=== PATIENT | male | born 1955 | race Caucasian/White ===

== ENCOUNTER 2017-05-04 09:58 | Day surgery (SDC) | payer OTHER ==
[2017-05-03 12:42] VITALS: BMI 38.9
[2017-05-04 12:21] LABS: #Eosinphils 0.3 thou/uL (0.0-0.7); #Lymphocytes 1.9 thou/uL (1.20-3.40); #Monocytes 0.7 thou/uL (0.11-0.59); %Basophils 0.5 % (0.0-1.0); %Eosinophils 2.8 % (0.0-10.0); %Lymphocytes 21.4 % (21.0-51.0); %Monocytes 7.8 % (0.0-10.0); Hematocrit 36.3 % (42.0-52.0); Mean Platelet Volume 7.1 fL (7.4-10.4); Red Blood Cell (RBC) Count 3.91 mill/uL (4.70-6.10)
[2017-05-04 12:27] LABS: PTT 37.2 SEC (22.9-36.1); Prothrombin Time 16.2 SEC (12.0-14.7)
[2017-05-04 12:50] LABS: ALT (SGPT) 21 U/L (8-55); AST (SGOT) 17 U/L (5-34); Alkaline Phosphatase 72 U/L (40-150); Anion Gap 13 mmol/L (10-20); BUN (Urea Nitrogen) 28 mg/dL (8.4-25.7); Bilirubin, Total 0.5 mg/dL (0.2-1.2); Calc. Creatinine Clearance 115 mL/min (70-130); Calcium 9.8 mg/dL (7.8-10.44); Carbon Dioxide 30 mmol/L (22-29); Chloride 99 mmol/L (98-107); Estimated GFR-MDRD 51; Globulin 3.8 g/dL (2.4-3.5); Protein, Total 7.9 g/dL (6.0-8.3)
--- NOTE | 2017-05-04 14:39 | OP ---
DATE OF PROCEDURE: 05/04/2017 PROCEDURE: Cardioversion. Mr. Abad is a 61-year-old man with prior history of persistent atrial fibrillation, atypical flutter with defibrillation in 01/2017. He is on chronic Multaq and Eliquis. He is here for cardioversion. PROCEDURE: The patient received propofol per Anesthesia specialist. After adequate level of sedation achieved, a synchronized 100 joule shock failed to convert him back to sinus rhythm and followup 200 joules synchronized shock promptly converted back to sinus rhythm. A long pause was noted initially, but then normal sinus rhythm returned and eventually heart rate stabilized around 60 beats per minute. CONCLUSION: Successful cardioversion. PLAN: 1. For now, continue Eliquis and Multaq. Consider alternative antiarrhythmic agents versus reablation if recurrent arrhythmias occurs, consider pacing if bradycardia persists. [facility]
== END 2017-05-04 14:30 | disposition home or self-care (01) ==
LOC: CCL 09:58
PROVIDERS: ATTEND Internal Medicine Cardiovascular Disease
DX: I48.1 Persistent atrial fibrillation (principal); I48.4 Atypical atrial flutter; I08.1 Rheumatic disorders of both mitral and tricuspid valves; I11.0 Hypertensive heart disease with heart failure; I50.30 Unspecified diastolic (congestive) heart failure; J98.4 Other disorders of lung; E66.9 Obesity, unspecified; F32.9 Major depressive disorder, single episode, unspecified; Z68.39 Body mass index [BMI] 39.0-39.9, adult; Z79.01 Long term (current) use of anticoagulants; Z79.899 Other long term (current) drug therapy; Z95.818 Presence of other cardiac implants and grafts; Z90.49 Acquired absence of other specified parts of digestive tract; Z98.890 Other specified postprocedural states
CPT/HCPCS: 36415; 80053; 85025; 85610; 85730; 92960; 93005; 93010

== ENCOUNTER 2017-06-25 07:59 | Outpatient (CLI) | payer OTHER ==
--- NOTE | 2017-06-25 10:52 | PRG ---
DATE OF SERVICE: 06/25/2017 WOUND CLINIC NOTE CHIEF COMPLAINT: Wound to the left foot. HISTORY OF PRESENT ILLNESS: A 61-year-old male presents today for initial evaluation of a left foot wound, started on 06/12/2017, when he dropped a hay spear on his foot, has been cleaning with peroxid e and Triple Antibiotic ointment since that time. Wound became red around the edges and went to his doctor yesterday and started on Bactrim DS twice a day. He says he has already noted some improvemen t in the redness. Denies any nausea, vomiting, fevers or chills. No pain associated with the wound. PAST MEDICAL HISTORY: Can be reviewed in the wound care clinic paper charts. PAST SURGICAL HISTORY: Can be reviewed in the wound care clinic paper charts. MEDICATIONS: Can be reviewed in the wound care clinic paper charts. ALLERGIES: Can be reviewed in the wound care clinic paper charts. SOCIAL HISTORY: Can be reviewed in the wound care clinic paper charts. FAMILY HISTORY: Can be reviewed in the wound care clinic paper charts. REVIEW OF SYSTEMS: CONSTITUTIONAL: Denies nausea, vomiting, fevers, or chills. NEUROLOGIC: Denies numbness, tingling, burning sensations. CARDIOVASCULAR: Relates atrial fibrillation, also some venous insufficiency. Has not had his arteri al circulation tested. PHYSICAL EXAMINATION: VITAL SIGNS: Temperature 97.9, pulse 93, respirations 18, blood pressure 108/54. VASCULAR: The posterior tibial pulses are nonpalpable, they are dopplerable. Capillary refill time is immediate to the distal aspect of the toes. NEUROLOGICAL: Light touch and protective threshold intact. DERMATOLOGICAL: Ulcer on the dorsal aspect of the left midfoot measuring 1.8 cm x 2.0 cm x 0.1 cm de pth, 100% eschar. There is a 2 cm periwound ring of erythema. No ascending lymphangitis. No areas of fluctuance. No drainage. Nails are thick and gryphotic with subungual debris and elongated. ASSESSMENT: 1. Traumatic ulceration to the dorsal aspect of the left foot, which was 100% eschar. 2. Cellulitis. PLAN: 1. Daily cleansing of the wound with soap and water, going to keep dry and prevent infection with Aq uacel AG and padded dressing. 2. Continue antibiotics. 3. He has an appointment with Dr. Mccarty, his foreign exchange clerk, and recommend doing his circulation test a t that appointment, he said he will get this done. 4. Follow up with me in 1 week.
== END 2017-06-25 08:00 | disposition home or self-care (01) ==
LOC: WCC 07:59
PROVIDERS: ATTEND Podiatrist Foot & Ankle Surgery
DX: L97.529 Non-pressure chronic ulcer of other part of left foot with unspecified severity (principal); L03.90 Cellulitis, unspecified
CPT/HCPCS: 97602; 99204; G0463

== ENCOUNTER → 2017-07-06 | Day surgery (SDC) | payer OTHER ==
[2017-07-05 15:22] VITALS: BMI 38.9
[~2017-07-06] MED LIST: Lidocaine 1% PF 5 ML VIAL ONE; PROPOFOL 0 ML ONE; PROPOFOL 20 ML ONE; PROPOFOL 200 MG/20 ML VIAL ONE
[2017-07-06 11:54] LABS: #Basophils 0.1 thou/uL (0.0-0.2); #Eosinphils 0.2 thou/uL (0.0-0.7); #Lymphocytes 2.1 thou/uL (1.20-3.40); #Neutrophils 8.3 thou/uL (1.40-6.50); %Basophils 0.5 % (0.0-1.0); %Eosinophils 1.8 % (0.0-10.0); %Lymphocytes 17.7 % (21.0-51.0); %Monocytes 8.8 % (0.0-10.0); %Neutrophils 71.2 % (42.0-75.0); Hemoglobin 13.9 g/dL (14.0-18.0); Mean Corpuscular HGB CONC 32.6 g/dL (32.0-36.0); Mean Corpuscular Hemoglobin 29.9 pg (27.0-31.0); Mean Corpuscular Volume 91.5 fl (80.0-94.0); Mean Platelet Volume 7.1 fL (7.4-10.4); Platelet Count 256 thou/uL (130-400); RBC Distribution Width 13.6 % (11.5-14.5); Red Blood Cell (RBC) Count 4.67 mill/uL (4.70-6.10); White Blood Cell (WBC) Count 11.6 thou/uL (4.8-10.8)
[2017-07-06 12:00] LABS: INR-International Normal Ratio 1.3; PTT 37.6 SEC (22.9-36.1); Prothrombin Time 16.8 SEC (12.0-14.7)
[2017-07-06 12:11] LABS: Anion Gap 18 mmol/L (10-20); BUN (Urea Nitrogen) 49 mg/dL (8.4-25.7); Calc. Creatinine Clearance 67 mL/min (70-130); Calcium 9.9 mg/dL (7.8-10.44); Carbon Dioxide 29 mmol/L (22-29); Chloride 92 mmol/L (98-107); Estimated GFR-MDRD 27; Glucose 123 mg/dL (70-105); Potassium 3.9 mmol/L (3.5-5.1); Sodium 135 mmol/L (136-145)
--- NOTE | 2017-07-06 14:02 | OP ---
DATE OF PROCEDURE: 07/06/2017 CARDIOVERSION REFERRING PHYSICIAN: REASON FOR PROCEDURE: Mr. Abad is a pleasant 61-year-old man with history of persistent atrial fibrillation, he had ablation in 2014, 2015 and 01/2017. He has recurrent atrial fibrillation/flutter, failed Multaq and now is transitioned to flecainide. He continues to feel poorly with elevated heart rates. He is here to attempt repeat cardioversion on flecainide therapy. PROCEDURE: The patient received deep sedation by Anesthesia specialist with propofol. After adequate level of sedation achieved, a synchronized 100 joule shock appeared to convert him to sinus rhythm. A follow up 300 joule shock, though converted back to sinus rhythm. Frequent PACs noted on return rates, but the patient overall tolerated the procedure well, no complication noted. CONCLUSION: Successful cardioversion. Addendum. Artypical atrial flutter recurred after < 1 minute. Plan to stop flecainide. Consider repeat pulmonary venous isolation or left atrial ablation procedure. Continue OAC. MTDD
--- NOTE | 2017-09-06 21:27 | EKG ---
Test Reason : PREOP Blood Pressure : / mmHG Vent. Rate : 102 BPM Atrial Rate : 107 BPM P-R Int : 000 ms QRS Dur : 098 ms QT Int : 370 ms P-R-T Axes : 000 068 071 degrees QTc Int : 482 ms Atrial fibrillation with rapid ventricular response Nonspecific ST abnormality , probably digitalis effect Abnormal ECG When compared with ECG of 04-MAY-2017 12:03, (Unconfirmed) No significant change was found Confirmed by FLAKO ROSAS M.D. ([id number]) on 09/06/2017 9:26:38 PM Referred By: [facility] Confirmed By:FLAKO ROSAS M.D.
--- NOTE | 2017-09-06 21:28 | EKG ---
Test Reason : POST CARDIOVERSION Blood Pressure : / mmHG Vent. Rate : 093 BPM Atrial Rate : 258 BPM P-R Int : 000 ms QRS Dur : 086 ms QT Int : 368 ms P-R-T Axes : 000 064 097 degrees QTc Int : 457 ms Atrial flutter with variable AV conduction. Nonspecific ST and T wave abnormality , probably digitalis effect Abnormal ECG When compared with ECG of 06-JUL-2017 11:53, (Unconfirmed) Nonspecific T wave abnormality now evident in Anterior leads Confirmed by FLAKO ROSAS M.D. ([id number]) on 09/06/2017 9:27:51 PM Referred By: [facility] Confirmed By:FLAKO ROSAS M.D.
== END ==
LOC: CCL 10:58
PROVIDERS: ATTEND Internal Medicine Cardiovascular Disease
DX: I48.1 Persistent atrial fibrillation (principal); I48.4 Atypical atrial flutter; I08.1 Rheumatic disorders of both mitral and tricuspid valves; J98.4 Other disorders of lung; F32.9 Major depressive disorder, single episode, unspecified; I11.9 Hypertensive heart disease without heart failure; E66.01 Morbid (severe) obesity due to excess calories; Z68.39 Body mass index [BMI] 39.0-39.9, adult; Z79.01 Long term (current) use of anticoagulants; Z79.899 Other long term (current) drug therapy; Z95.818 Presence of other cardiac implants and grafts; Z90.49 Acquired absence of other specified parts of digestive tract; Z98.890 Other specified postprocedural states
CPT/HCPCS: 36415; 80048; 85025; 85610; 85730; 92960; 93005; 93010; J2001; J2704

== ENCOUNTER 2017-08-13 05:52 | Observation (INO) | payer OTHER ==
[2017-08-13 07:19] LABS: #Eosinphils 0.1 thou/uL (0.0-0.7); #Lymphocytes 1.9 thou/uL (1.20-3.40); #Monocytes 0.9 thou/uL (0.11-0.59); #Neutrophils 7.3 thou/uL (1.40-6.50); %Basophils 0.3 % (0.0-1.0); %Eosinophils 1.4 % (0.0-10.0); %Lymphocytes 18.6 % (21.0-51.0); %Monocytes 8.3 % (0.0-10.0); %Neutrophils 71.4 % (42.0-75.0); Hemoglobin 13.5 g/dL (14.0-18.0); Mean Corpuscular HGB CONC 33.8 g/dL (32.0-36.0); Mean Corpuscular Volume 85.9 fl (80.0-94.0); Mean Platelet Volume 7.5 fL (7.4-10.4); Platelet Count 180 thou/uL (130-400); RBC Distribution Width 13.7 % (11.5-14.5); Red Blood Cell (RBC) Count 4.63 mill/uL (4.70-6.10); White Blood Cell (WBC) Count 10.2 thou/uL (4.8-10.8)
[2017-08-13 07:26] LABS: INR-International Normal Ratio 1.4; PTT 37.3 SEC (22.9-36.1); Prothrombin Time 17.5 SEC (12.0-14.7)
[2017-08-13 07:40] LABS: Anion Gap 17 mmol/L (10-20); BUN (Urea Nitrogen) 49 mg/dL (8.4-25.7); Calc. Creatinine Clearance 85 mL/min (70-130); Calcium 10.1 mg/dL (7.8-10.44); Carbon Dioxide 35 mmol/L (22-29); Chloride 90 mmol/L (98-107); Estimated GFR-MDRD 37; Glucose 148 mg/dL (70-105); Sodium 139 mmol/L (136-145)
[2017-08-13 07:43] LABS: Potassium 2.6 mmol/L (3.5-5.1)
[2017-08-13] MEDS ORDERED: Potassium Chloride 20 MEQ in Premix Bag 1 BAG IVPB SCH (08:00)
[2017-08-13] MEDS ORDERED: Potassium Chloride 20 MEQ TAB PO SCH ×3 (08:00→20:00)
[2017-08-13] MEDS ORDERED: Potassium Chloride 20 MEQ, Admixture Fee 1 EACH in Sodium Chloride 0.9% 100 ML IVPB SCH (08:45)
--- NOTE | 2017-08-13 09:28 | PDOC.FPRHP ---
- History of Present Illness Chief Complaint: Hypokalemia History of Present Illness: PCP - Breanna Patient seen 08/13/17 at 0854 Mr. Abad is a pleasant 62 year old white male with a past medical history of atrial fibrillation, HTN, and depression was scheduled to have a cardioversion this morning. Admission labs collected in PCU showed a potassium of 2.6. Patient states he feels well overall today. Denies headache, dizziness, chest pain, dyspnea, nausea, and weakness. He has had atrial fibrillation for years but states it has been worsening recently. He has had frequent dizziness and multiple episodes of syncope in recent weeks. He reports several attempts at ablation that have failed. ED Course: Not seen in ED. Seen in PCU as listed above - Allergies/Adverse Reactions Allergies Allergy/AdvReac Type Severity Reaction Status Date / Time No Known Allergies Allergy Verified 08/12/17 14:05 - Home Medications Medication Instructions Recorded Confirmed Type Tamsulosin HCl 1 tab PO HS 12/12/13 08/13/17 History Venlafaxine HCl [Effexor] 75 mg PO DAILY 12/12/13 08/13/17 History Apixaban [Eliquis] 5 mg PO BID 05/04/15 08/13/17 History Diltiazem HCl [Cardizem] 60 mg PO TID 07/05/17 08/13/17 History Furosemide [Lasix] 40 mg PO BID 07/05/17 08/13/17 History Dofetilide [Tikosyn] 0.5 mg PO BID 08/12/17 08/13/17 History Metoprolol Succinate [Toprol XL] 0.5 tab PO DAILY 08/12/17 08/13/17 History Naproxen Sodium [Aleve] 2 tab PO DAILY 08/12/17 08/13/17 History Potassium Chloride 20 meq PO BID 08/12/17 08/13/17 History Metoprolol Tartrate 100 mg PO BID 08/13/17 08/13/17 History - History PMHx: A. fib, HTN, depression PSHx: Cholecystectomy, clemente surgery, multiple cardiac ablation, tonsillectomy FHx: Adopted. FH unknown Social: Rare alcohol use. No history of tobacco or drug use. . 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 denies: chest pain, edema, paroxysmal nocturnal dyspnea, orthopnea Gastrointestinal: denies: nausea, vomiting, diarrhea, constipation, abdominal pain, GI bleeding Genitourinary: denies: incontinence, dysuria, polyuria Skin: denies: rashes, lesions, jaundice, itching Musculoskeletal: denies: pain, tenderness, stiffness, swelling, arthritis/ arthralgias Neurological: reports: syncope. denies: numbness, seizure, weakness Psychological: reports: other (Denies suicidal and homicidal ideation). denies : anxiety, depression - Vital signs BP: 96/56 HR: 84 RR: 16 Tmax: [] Pox: 96% on RA Wt: 145 kg - Physical Exam Constitutional: NAD, awake, alert and oriented, well developed HEENT: normocephalic and atraumatic, PERRLA, EOMI, conjunctiva clear, no scleral icterus, grossly normal vision, TM's clear and intact, grossly normal hearing, normal nasal mucosa, MMM, oropharynx clear, good dention Neck: supple, FROM, trachea midline, no LAD, no thyromegaly, no bruits Chest: no-tender to palpation, no lesions Heart: normal S1/S2, no murmurs/rubs/gallops, pulses present, no edema -Heart: Irregular rhythm Lungs: CTAB, no respiratory distress, good air movement, no rales/rhonchi, no wheezing, no retractions Abdomen: soft, non-tender, bowel sounds present, no masses/distention, no hernias Musculoskeletal: normal structure, normal tone, ROM grossly normal Neurological: no focal deficit, CN II-XII intact, normal sensation, DTRs 2+ Skin: no rash/lesions, good turgor, capillary refill <2 seconds, no jaundice Heme/Lymphatic: no unusual bruising or bleeding, no purpura, no petechia, no LAD Psychiatric: normal mood and affect, good judgment and insight, intact recent and remote memory FMR H&P: Results - Labs Result Diagrams: 08/13/17 07:01 08/13/17 07:01 Lab results: WBC 10.2 thou/uL (4.8-10.8) 08/13/17 07:01 Hgb 13.5 g/dL (14.0-18.0) L 08/13/17 07:01 Hct 39.8 % (42.0-52.0) L 08/13/17 07:01 MCV 85.9 fl (80.0-94.0) 08/13/17 07:01 Plt Count 180 thou/uL (130-400) 08/13/17 07:01 Neutrophils % 71.4 % (42.0-75.0) 08/13/17 07:01 Sodium 139 mmol/L (136-145) 08/13/17 07:01 Potassium 2.6 mmol/L (3.5-5.1) L* 08/13/17 07:01 Chloride 90 mmol/L (98-107) L 08/13/17 07:01 Carbon Dioxide 35 mmol/L (22-29) H 08/13/17 07:01 BUN 49 mg/dL (8.4-25.7) H 08/13/17 07:01 Creatinine 1.89 mg/dL (0.6-1.3) H 08/13/17 07:01 Glucose 148 mg/dL (70-105) H 08/13/17 07:01 Calcium 10.1 mg/dL (7.8-10.44) 08/13/17 07:01 - EKG Interpretation EKG: Irregular. Atrial fibrillation. No ischemic changes. No P-waves present FMR H&P: A/P - Problem List (1) Hypokalemia Current Visit: Yes Status: Acute Priority: High Code(s): E87.6 - HYPOKALEMIA Assessment and Plan: Place in telemetry observation - Given 60 mEq po and 20 mEq iv in PCU - Check magnesium - In light of hypertension and hypokalemia, will rule out hyperaldersteronism - (2) Atrial fibrillation Current Visit: Yes Status: Chronic Code(s): I48.91 - UNSPECIFIED ATRIAL FIBRILLATION Qualifiers: Atrial fibrillation type: chronic Qualified Code(s): I48.2 - Chronic atrial fibrillation Assessment and Plan: Continue home meds - Continue anticoagullation - Dr. Monzon consulted - Monitor on telemetry - Echo taken. Read pending (3) HTN (hypertension), benign Current Visit: No Status: Chronic Code(s): I10 - ESSENTIAL (PRIMARY) HYPERTENSION Assessment and Plan: BP a little low at time of exam. Will monitor and restart home meds if improved (4) BPH (benign prostatic hyperplasia) Current Visit: No Status: Chronic Code(s): N40.0 - BENIGN PROSTATIC HYPERPLASIA WITHOUT LOWER URINRY TRACT SYMP Qualifiers: Lower urinary tract symptom presence: presence of symptoms unspecified Assessment and Plan: Home meds (5) Diastolic CHF Current Visit: Yes Status: Chronic Code(s): I50.30 - UNSPECIFIED DIASTOLIC ( CONGESTIVE) HEART FAILURE Qualifiers: Heart failure chronicity: chronic Qualified Code(s): I50.32 - Chronic diastolic (congestive) heart failure Assessment and Plan: Previous echo from 2016 read to be suspicious for diastolic CHF and several of his meds are consistent with CHF. Will monitor input and output. Echo requested by Dr. Monzon (6) Depression Current Visit: No Status: Chronic Code(s): F32.9 - MAJOR DEPRESSIVE DISORDER , SINGLE EPISODE, UNSPECIFIED Qualifiers: Depression Type: major depressive disorder Major depression recurrence: recurrent Active/Remission status: remission status unspecified Qualified Code(s): F33.9 - Major depressive disorder, recurrent, unspecified Assessment and Plan: Home meds - Plan Code Status - Full Activity - Ambulate with assist, fall precautions DVT prophylaxis - home anticoagulant Diet - NPO as Dr. Monzon may cardiovert later today Disposition/LOS: Anticipate 1 to 2 day stay with discharge home FMR H&P: Upper Level - Plan Date/Time: 08/13/17 [id number] I, [], have evaluated this patient and agree with findings/plan as outlined by hospital internship resident. Pertinent changes/additions are listed here. Attending Addendum - Attending Addendum Date/Time: 08/13/17 1329 I personally evaluated the patient and discussed the management with the Resident Physician. I agree with the History, Examination, Assessment and Plan documented above with any addition or exceptions noted below.
[2017-08-13 13:04] VITALS: BMI 38.2
[2017-08-13] MEDS: Dextrose 5 %-0.45 % NaCl 1,000 ML IV SCH ×2 (13:34→23:45)
[2017-08-13 14:09] LABS: Anion Gap 16 mmol/L (10-20); BUN (Urea Nitrogen) 49 mg/dL (8.4-25.7); Calc. Creatinine Clearance 89 mL/min (70-130); Calcium 9.6 mg/dL (7.8-10.44); Carbon Dioxide 32 mmol/L (22-29); Chloride 93 mmol/L (98-107); Estimated GFR-MDRD 39; Glucose 109 mg/dL (70-105); Potassium 3.2 mmol/L (3.5-5.1); Sodium 138 mmol/L (136-145)
--- NOTE | 2017-08-13 14:13 | PRG ---
DATE OF SERVICE: 08/13/2017 REFERRING PHYSICIAN: Dr. Mccarty I am seeing Mr. Abad at our [facility] PCU as a followup. SUBJECTIVE: Mr. Abad has been experiencing increasing dizzy spells and weakness. Hence, we samaria t him into the office. Atrial flutter with rapid rates were noted and despite the continued Tikosyn initiated after his last ablation in 07/2017. The decision was made to bring him in for repeat cardi oversion. This morning, currently, he is doing fairly, still feels somewhat dizzy, did not pass out completely. No chest pain, no fever, chills or cough, no stroke-like symptoms. Respiratory system o therwise unremarkable. Laboratory revealed lower potassium at 2.6 on this morning's labs. OBJECTIVE DATA: VITAL SIGNS: Blood pressure is 90/52, heart rate 93, respirations 17, temperature 97.3 degrees Fahre nheit. GENERAL: He is alert and oriented man in no apparent distress with elevated BMI. NECK: Supple. Jugular veins not distended. CHEST: Coarse without crackles. CARDIOVASCULAR: Heart sounds, irregular. S1 and S2 is variable. No murmur or gallop. ABDOMEN: Benign. Bowel sounds positive. EXTREMITIES: Lower extremities without edema, clubbing or cyanosis. Pulses are adequate. NEUROLOGIC: Patient nonfocal. MUSCULOSKELETAL: No joint swelling or deformities. SKIN: Without rash. DATABASE: EKG was reviewed reveals atrial flutter with occasional PVCs, prolonged QT considering the low potassium. Subsequent telemetry strips reveal continued atrial tachycardia with occasional PVCs . No ventricular tachycardia was noted. LABORATORY DATA: Sodium 139, potassium 2.6, BUN 49, creatinine 1.89. The white count is 10, hemoglo bin 10.5, platelet count is 180. INR is 1.4. PAST HISTORY/SOCIAL HISTORY: Reviewed. ASSESSMENT AND PLAN: Mr. Abad is a 62-year-old male with history of atrial fibrillation, diastolic heart failure, obesity, hypertension, who was admitted, has recurrent atrial arrhythmias despite con tinued Tikosyn. He also has some mild to moderate renal insufficiency and he is on high dose diureti cs. This morning he is noted to have marked low potassium. At this point, we decided to replace pot assium prior to a planned cardioversion. I also requested a Nephrology consult. Family Practice Res idency team is going to admit him. I discussed the case with Dr. Mccarty as well. The plan is to attempt cardioversion. Monitor potassium levels and hopefully optimize his potassium replacement and renal function. The Tikosyn levels might need adjustments as well.
[2017-08-13] MEDS ORDERED: Diprivan 0 ML ONE (15:40)
[2017-08-13] MEDS ORDERED: Diprivan 20 ML ONE (15:48)
[2017-08-13] MEDS ORDERED: Digoxin 0.25 MG TAB PO SCH (17:00)
[2017-08-13] MEDS: Furosemide 40 MG TAB PO SCH (20:03)
[2017-08-13] MEDS: Tamsulosin HCl 0.4 MG CAP PO SCH (20:03)
[2017-08-13] MEDS: Apixaban 5 MG TAB PO SCH (20:03)
[2017-08-13] MEDS ORDERED: Tamsulosin HCl 0.4 MG CAP PO SCH (21:00)
[2017-08-13] MEDS ORDERED: DOFETILIDE PO SCH (21:00)
[2017-08-13] MEDS ORDERED: Dofetilide 0.125 MG CAP PO SCH (21:00)
--- NOTE | 2017-08-14 00:16 | OP ---
DATE OF SERVICE: 08/13/2017 CARDIOVERSION REPORT REFERRING PHYSICIAN: Svetlana Mccarty M.D. REASON FOR PROCEDURE: Mr. Abad is a 62-year-old male with prior history of recurrent atrial arrhyt hmias. He underwent a recent redo left atrial ablation procedure and was placed on Tikosyn in [place] . Now, he returned with atrial tachycardia, atrial fibrillation, and due to dizzy spells, we exploit ed his cardioversion. The patient is still taking 500 mcg of Tikosyn. Also, this morning labs revie wed potassium of 2.6 and aggressive replacement of potassium was performed, the followup potassium le homar was 3.2. The patient has been taking his anticoagulation without interruption. PROCEDURE: The patient received propofol by Anesthesia specialist. After adequate level of sedation achieved, a synchronized a 20 joule shock promptly converted patient back to sinus rhythm. After sh ort pause, the atrial tachycardia recurred with 1:1 AV conduction at a rate about 120 beats per minut e. Following that repeated cardioversion with 100 joules again achieved a cardioversion, but early recur rence of atrial tachycardia has been seen. CONCLUSION: Successful cardioversion, but with early recurrence of atrial tachycardia noted. PLAN: At this point, in the presence of QT prolongation and borderline renal and potassium levels, w e will stop Tikosyn. After optimization of his potassium levels and washout of his Tikosyn, we could reconsider flecainide and another cardioversion versus continued rate control is also reasonable up until a couple months out of the procedure. At this point, a repeated cardioversion will likely to b e performed. If at that point atrial tachycardia still persist, repeat ablation is another possibili ty. For now, he will remain in the hospital for rate control and optimization of his potassium levels and diastolic heart failure issues. Discussed with Dr. Mccarty, his usual dance therapist, as well as Dr. Fredrick rosa, who covers for her as well.
[2017-08-14 05:03] LABS: #Eosinphils 0.3 thou/uL (0.0-0.7); #Lymphocytes 2.4 thou/uL (1.20-3.40); #Monocytes 1.1 thou/uL (0.11-0.59); #Neutrophils 6.5 thou/uL (1.40-6.50); %Basophils 0.3 % (0.0-1.0); %Eosinophils 2.6 % (0.0-10.0); %Lymphocytes 23.3 % (21.0-51.0); %Monocytes 10.8 % (0.0-10.0); Hemoglobin 12.8 g/dL (14.0-18.0); Mean Corpuscular HGB CONC 32.3 g/dL (32.0-36.0); Mean Corpuscular Hemoglobin 28.3 pg (27.0-31.0); Mean Corpuscular Volume 87.5 fl (80.0-94.0); Mean Platelet Volume 7.9 fL (7.4-10.4); Platelet Count 167 thou/uL (130-400); RBC Distribution Width 13.6 % (11.5-14.5); Red Blood Cell (RBC) Count 4.54 mill/uL (4.70-6.10); White Blood Cell (WBC) Count 10.3 thou/uL (4.8-10.8)
[2017-08-14 05:20] LABS: Anion Gap 16 mmol/L (10-20); BUN (Urea Nitrogen) 41 mg/dL (8.4-25.7); Calc. Creatinine Clearance 100 mL/min (70-130); Calcium 9.5 mg/dL (7.8-10.44); Carbon Dioxide 32 mmol/L (22-29); Chloride 92 mmol/L (98-107); Estimated GFR-MDRD 44; Glucose 147 mg/dL (70-105); Potassium 3.2 mmol/L (3.5-5.1); Sodium 137 mmol/L (136-145)
--- NOTE | 2017-08-14 06:20 | PDOC.FM ---
- Subjective Subjective: Patient states he had a good night. He spontaneously converted to NSR around midnight previously. Patient states he no longer has sob and denies lightheadedness. He states that he is waiting to see Dr. Snowden and a light oil operator today. He denies n/v/d, fever, or chills. No other complaints. - Objective Vital Signs & Weight: Vital Signs (12 hours) Temp Pulse Resp BP Pulse Ox 08/14/17 04:43 97.6 F 70 14 123/57 L 97 08/14/17 00:03 98 F 130 H 18 127/79 95 08/13/17 20:08 98.5 F 135 H 18 08/13/17 19:27 98.5 F 135 H 18 133/77 97 Weight Weight 145.24 kg I&O: 08/12/17 08/13/17 08/14/17 06:59 06:59 06:59 Intake Total 2110 Output Total 1050 Balance 1060 Result Diagrams: 08/14/17 04:43 08/14/17 04:43 <Sanjay Rao - Last Filed: 08/14/17 07:49> - Objective Vital Signs & Weight: Vital Signs (12 hours) Temp Pulse Resp BP Pulse Ox 08/14/17 08:59 64 08/14/17 08:00 97.6 F 70 14 08/14/17 07:54 97.8 F 67 20 141/58 H 94 L 08/14/17 04:43 97.6 F 70 14 123/57 L 97 08/14/17 00:03 98 F 130 H 18 127/79 95 Weight Weight 145.24 kg I&O: 08/13/17 08/14/17 08/15/17 06:59 06:59 07:59 Intake Total 2110 Output Total 1050 Balance 1060 Result Diagrams: 08/14/17 04:43 08/14/17 04:43 <Ruperto Casarez - Last Filed: 08/14/17 11:17> Phys Exam - Physical Examination Constitutional: NAD HEENT: moist MMs Neck: no nodes Respiratory: no wheezing Cardiovascular: RRR, no significant murmur Gastrointestinal: soft, non-tender, no distention, positive bowel sounds Musculoskeletal: no edema, pulses present Neurological: non-focal, moves all 4 limbs Lymphatic: no nodes Psychiatric: normal affect, A&O x 3 Skin: no rash <Sanjay Rao - Last Filed: 08/14/17 07:49> Dx/Plan (1) Hypokalemia Code(s): E87.6 - HYPOKALEMIA Status: Acute Plan: Place in telemetry observation - Potassium this am 3.2, will continue to replenish - Mg on 08/13 was 2.5 - In light of hypertension and hypokalemia, will rule out hyperaldersteronism (2) Atrial fibrillation Code(s): I48.91 - UNSPECIFIED ATRIAL FIBRILLATION Status: Chronic QualifierTitle: Atrial fibrillation type: chronic Qualified Code(s): I48.2 - Chronic atrial fibrillation Plan: Continue home meds - Continue anticoagullation - Dr. Monzon consulted, cardioversion failed - Monitor on telemetry - Rate controlled into 70s overnight (3) Diastolic CHF Code(s): I50.30 - UNSPECIFIED DIASTOLIC (CONGESTIVE) HEART FAILURE Status: Chronic QualifierTitle: Heart failure chronicity: chronic Qualified Code(s): I50.32 - Chronic diastolic (congestive) heart failure Plan: -ECHO results could not determine diastolic CHF because of A-fib - EF 50-55% -Will make treatment changes as needed -Currently asymptomatic (4) BPH (benign prostatic hyperplasia) Code(s): N40.0 - BENIGN PROSTATIC HYPERPLASIA WITHOUT LOWER URINRY TRACT SYMP Status: Chronic QualifierTitle: Lower urinary tract symptom presence: presence of symptoms unspecified Plan: -Continue home meds (5) Depression Code(s): F32.9 - MAJOR DEPRESSIVE DISORDER, SINGLE EPISODE, UNSPECIFIED Status : Chronic QualifierTitle: Depression Type: major depressive disorder Major depression recurrence: recurrent Active/Remission status: remission status unspecified Qualified Code(s): F33.9 - Major depressive disorder, recurrent, unspecified Plan: -Continue home meds (6) HTN (hypertension), benign Code(s): I10 - ESSENTIAL (PRIMARY) HYPERTENSION Status: Chronic Plan: -BP 120s/70s -Will resume home meds, will monitor for low BP -Will make treatment changes as needed. (7) CKD (chronic kidney disease) stage 3, GFR 30-59 ml/min Code(s): N18.3 - CHRONIC KIDNEY DISEASE, STAGE 3 (MODERATE) Status: Acute Plan: -Pending Nephrology recs, Appreciate Dr. Calixto's recs - Monitor with BMP - Plan Plan: Will await Cards & Nephro recs, and electrolyte replenishment before discharge planning. <Sanjay Rao - Last Filed: 08/14/17 07:49> (1) Hypokalemia Code(s): E87.6 - HYPOKALEMIA Status: Acute (2) Atrial fibrillation Code(s): I48.91 - UNSPECIFIED ATRIAL FIBRILLATION Status: Chronic Qualifiers: Atrial fibrillation type: chronic Qualified Code(s): I48.2 - Chronic atrial fibrillation (3) HTN (hypertension), benign Code(s): I10 - ESSENTIAL (PRIMARY) HYPERTENSION Status: Chronic (4) BPH (benign prostatic hyperplasia) Code(s): N40.0 - BENIGN PROSTATIC HYPERPLASIA WITHOUT LOWER URINRY TRACT SYMP Status: Chronic Qualifiers: Lower urinary tract symptom presence: presence of symptoms unspecified (5) Diastolic CHF Code(s): I50.30 - UNSPECIFIED DIASTOLIC (CONGESTIVE) HEART FAILURE Status: Chronic Qualifiers: Heart failure chronicity: chronic Qualified Code(s): I50.32 - Chronic diastolic (congestive) heart failure (6) Depression Code(s): F32.9 - MAJOR DEPRESSIVE DISORDER, SINGLE EPISODE, UNSPECIFIED Status : Chronic Qualifiers: Depression Type: major depressive disorder Major depression recurrence: recurrent Active/Remission status: remission status unspecified Qualified Code(s): F33.9 - Major depressive disorder, recurrent, unspecified <Ruperto Casarez - Last Filed: 08/14/17 11:17> Attending Addendum - Attending Addendum Date/Time: 08/14/17 1115 I personally evaluated the patient and discussed the management with Dr. Rao. I agree with the History, Examination, Assessment and Plan documented above with any addition or exceptions noted below. Appreciate Cards and Nephro input. He may benefit from daily Magnesium supplementation. He may benefit from spironolactone to prevent hypokalemia. <Ruperto Casarez - Last Filed: 08/14/17 11:17>
[2017-08-14] MEDS ORDERED: Potassium Chloride 20 MEQ TAB PO SCH (06:30)
[2017-08-14] MEDS: Digoxin 0.125 MG TAB PO SCH (08:59)
[2017-08-14] MEDS: Apixaban 5 MG TAB PO SCH ×2 (09:00→20:12)
[2017-08-14] MEDS: Furosemide 40 MG TAB PO SCH (09:01)
--- NOTE | 2017-08-14 10:32 | ULT ---
BILATERAL RENAL ULTRASOUND: Date: 08/14/17 PROVIDED CLINICAL HISTORY: Renal insufficiency. FINDINGS: Right kidney measures about 11.5 x 7.0 x 7.0 cm and demonstrates no evidence for hydronephrosis or ma ss. Left kidney measures about 14.0 x 5.8 x 4.4 cm and demonstrates no evidence for hydronephrosis or mas s. Multiple simple cysts are seen. The urinary bladder appears sonographically unremarkable. IMPRESSION: No evidence for hydronephrosis. POS: VINNIE
--- NOTE | 2017-08-14 11:25 | CON ---
DATE OF CONSULTATION: 08/14/2017 HISTORY OF PRESENT ILLNESS: Mr. Abad is a 62-year-old white male, who was admitted due to rapid AF ib/flutter and now referred for his hypokalemia. He was also noted to have some mild renal impairmen t. I did review his lab work in the last several months and renal dysfunction was noted early last y ear. Prior to that the renal function was normal. I also noted that he was started on diuretics las t year and he has been currently placed on maintenance potassium replacement. We are here to further evaluate his hypokalemia and renal dysfunction. Renal ultrasound has been ord ered, which was said to be normal. REVIEW OF SYSTEMS: No chest pain, no shortness of breath, occasional palpitation. No nausea, no vom iting, no diarrhea, no constipation, no hematochezia, no melena, no hematemesis, no abdominal pain, o ccasional joint pains, no headache, no syncopal episode, no productive cough, no fever or chills, no gross hematuria. MEDICATIONS: Currently on Eliquis 5 mg p.o. b.i.d., currently on D5 half normal saline 100 mL per ho ur, furosemide 40 mg p.o. b.i.d., Toprol-XL 50 mg daily, Flomax 0.4 mg daily, Effexor 75 mg daily. PAST MEDICAL HISTORY: History of chronic atrial fibrillation/atrial flutter and hypertension. Freya barry note, hypertension has been diagnosed 30 years ago. PAST SURGICAL HISTORY: Status post cardioversion multiple times, status post cardiac ablation x4, st atus post cardiac catheterization. SOCIAL HISTORY: The patient lives in [place], , 4 children. Alcohol: One half bottle of whiske y per weekend. 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 Education: H igh school. No IV drug abuse. No blood transfusion. Active lifestyle. ALLERGIES: None. TRAUMA: None. IMMUNIZATIONS: Up to date. HOSPITALIZATIONS: Please see past medical history. FAMILY HISTORY: The patient is adopted. PHYSICAL EXAMINATION: VITAL SIGNS: Blood pressure is noted at 141/58, heart rate 67, respiratory rate 20, temperature 97.8 , pulse ox 94%. GENERAL: Noted to be awake, alert, and comfortable, not in overt distress. SKIN: Adequate turgor. HEENT: He has pinkish conjunctivae, anicteric sclerae. NECK: No neck mass, no carotid bruits, no JVD. CHEST: No deformities. LUNGS: Clear breath sounds. HEART: Normal sinus rhythm. No murmur, no gallops, no rubs. ABDOMEN: Globular, soft, nontender, no masses. EXTREMITIES: No edema, no deformities. NEUROLOGIC: Awake, oriented to 3 spheres. No asterixis, no tremors, moving all extremities. LABORATORY DATA: Laboratories of 08/14/2017: Sodium 137, potassium 3.2, chloride 92, carbon dioxide 32, BUN 41, creatinine 1.61, glucose 147, calcium 9.5. White count 10.3 and hemoglobin 12.8. Renal ultrasound was normal. Further review of serum creatinine shows the following: On 08/13/2017, creatinine was 1.89. Further review of the serum creatinine shows that on 05/04/2017, creatinine was 1.42. On 12/29/2016, creatinine was 1.75. On 11/13/2016, creatinine was 1.08. ASSESSMENT AND PLAN: 1. Chronic renal failure -- I suspect this is a hemodynamically mediated renal dysfunction. We will adjust his Lasix downwards. He was given gentle volume repletion. 2. Hypokalemia, most likely diuretic induced. I have decided to add spironolactone to consider pota ssium and due to the fact he does have history of leg edema as well as hypertension. 3. Chronic leg edema -- unclear etiology. However, we will adjust furosemide downwards. 4. Hypokalemia. I would probably continue potassium replacement since the patient will still be on diuretics. Please note, spironolactone has been added. Check base met, CBC and urinalysis in the morning.
[2017-08-14] MEDS: Dextrose 5 %-0.45 % NaCl 1,000 ML IV SCH ×2 (11:54→20:11)
[2017-08-14 13:42] LABS: Bilirubin Negative (Negative); Blood, Urine Negative (Negative); Clarity CLEAR (Clear); Glucose, Urine (Dipstick) Negative (Negative); Leukocyte Negative (Negative); Nitrite Negative (Negative); Protein, Urine (Dipstick) Negative (Neg-Trace); Specific Gravity, Urine 1.011 (1.002-1.036); Urobilinogen 0.2 mg/dL (0.2-1.0)
[2017-08-14 13:44] LABS: Bacteria/HPF None Seen HPF (None Seen); Hyaline Casts/LPF 0-3 HYALINE CAST LPF (0-3 Hyaline); RBC/HPF 0-3 HPF (0-3); Squamous Epithelial None Seen HPF (0-3); WBC/HPF None Seen HPF (0-3)
[2017-08-14] MEDS: Tamsulosin HCl 0.4 MG CAP PO SCH (20:13)
[2017-08-15 04:48] LABS: #Eosinphils 0.2 thou/uL (0.0-0.7); #Monocytes 0.8 thou/uL (0.11-0.59); #Neutrophils 5.1 thou/uL (1.40-6.50); %Basophils 0.4 % (0.0-1.0); %Eosinophils 2.5 % (0.0-10.0); %Lymphocytes 24.7 % (21.0-51.0); %Monocytes 10.1 % (0.0-10.0); %Neutrophils 62.3 % (42.0-75.0); Hemoglobin 11.6 g/dL (14.0-18.0); Mean Corpuscular HGB CONC 32.1 g/dL (32.0-36.0); Mean Corpuscular Hemoglobin 28.7 pg (27.0-31.0); Mean Corpuscular Volume 89.4 fl (80.0-94.0); Mean Platelet Volume 7.7 fL (7.4-10.4); Platelet Count 151 thou/uL (130-400); RBC Distribution Width 13.8 % (11.5-14.5); Red Blood Cell (RBC) Count 4.04 mill/uL (4.70-6.10); White Blood Cell (WBC) Count 8.2 thou/uL (4.8-10.8)
[2017-08-15 05:00] LABS: Anion Gap 11 mmol/L (10-20); BUN (Urea Nitrogen) 28 mg/dL (8.4-25.7); Calc. Creatinine Clearance 127 mL/min (70-130); Calcium 9.3 mg/dL (7.8-10.44); Carbon Dioxide 37 mmol/L (22-29); Chloride 91 mmol/L (98-107); Estimated GFR-MDRD 58; Glucose 128 mg/dL (70-105); Sodium 136 mmol/L (136-145)
[2017-08-15 05:03] LABS: Potassium 2.8 mmol/L (3.5-5.1)
[2017-08-15] MEDS ORDERED: Potassium Chloride 20 MEQ/100 ML PREMIX BAG IVPB SCH (05:30)
[2017-08-15] MEDS: Dextrose 5 %-0.45 % NaCl 1,000 ML IV SCH (05:31)
[2017-08-15] MEDS ORDERED: Potassium Chloride 20 MEQ TAB PO SCH ×4 (06:15→19:00)
--- NOTE | 2017-08-15 06:20 | PDOC.FM ---
- Subjective Subjective: Patient had a good night. He states he has been up and walking around with no problems. He also notes his heart hasn't gone out of rhythm. He denies chest pain, sob, n/v/d. He said he was seen yesterday by Nephrology and Dr. Calixto as well as Cardiology and Dr. Snowden. He is agreeable to their treatment plans at this time. He has been having regular BMs and urination. No fevers, chills, cough, or other complaints this morning. - Objective Vital Signs & Weight: Vital Signs (12 hours) Temp Pulse Resp BP Pulse Ox 08/15/17 04:00 98.1 F 57 L 18 127/71 94 L 08/14/17 20:15 98.5 F 60 16 08/14/17 19:26 98.5 F 60 16 120/63 93 L Weight Weight 145.24 kg I&O: 08/13/17 08/14/17 08/15/17 06:59 06:59 07:59 Intake Total 2110 1658 Output Total 1050 2250 Balance 1060 -592 Result Diagrams: 08/15/17 04:10 08/15/17 04:10 <Sanjay Rao - Last Filed: 08/15/17 09:50> - Objective Vital Signs & Weight: Vital Signs (12 hours) Temp Pulse Resp BP Pulse Ox 08/15/17 08:53 64 08/15/17 07:44 98.4 F 60 17 143/68 H 95 08/15/17 07:29 98.1 F 57 L 18 08/15/17 04:00 98.1 F 57 L 18 127/71 94 L Weight Weight 145.24 kg I&O: 08/14/17 08/15/17 08/16/17 05:59 06:59 06:59 Intake Total Output Total Balance Result Diagrams: 08/15/17 04:10 08/15/17 04:10 <Ruperto Casarez - Last Filed: 08/15/17 10:01> Phys Exam - Physical Examination HEENT: moist MMs Neck: no nodes Respiratory: no wheezing, clear to auscultation bilateral Cardiovascular: RRR, no significant murmur Gastrointestinal: soft, non-tender, no distention, positive bowel sounds Musculoskeletal: no edema, pulses present Neurological: non-focal, normal sensation, moves all 4 limbs Lymphatic: no nodes Psychiatric: normal affect, A&O x 3 Skin: no rash <Sanjay Rao - Last Filed: 08/15/17 09:50> Dx/Plan (1) Hypokalemia Code(s): E87.6 - HYPOKALEMIA Status: Acute Plan: Place in telemetry observation - Potassium this am 2.8, will continue to replenish - Recheck BMP this afternoon - Scheduled Mg - In light of hypertension and hypokalemia, will rule out hyperaldersteronism, awaiting results - Nephrology has added Spironolactone (2) Atrial fibrillation Code(s): I48.91 - UNSPECIFIED ATRIAL FIBRILLATION Status: Chronic QualifierTitle: Atrial fibrillation type: chronic Qualified Code(s): I48.2 - Chronic atrial fibrillation Plan: Continue home meds - Continue anticoagullation - Dr. Monzon consulted, cardioversion failed - Monitor on telemetry - Rate controlled into 70s overnight (3) Diastolic CHF Code(s): I50.30 - UNSPECIFIED DIASTOLIC (CONGESTIVE) HEART FAILURE Status: Chronic QualifierTitle: Heart failure chronicity: chronic Qualified Code(s): I50.32 - Chronic diastolic (congestive) heart failure Plan: -ECHO results could not determine diastolic CHF because of A-fib - EF 50-55% -Will make treatment changes as needed -Currently asymptomatic (4) BPH (benign prostatic hyperplasia) Code(s): N40.0 - BENIGN PROSTATIC HYPERPLASIA WITHOUT LOWER URINRY TRACT SYMP Status: Chronic QualifierTitle: Lower urinary tract symptom presence: presence of symptoms unspecified Plan: -Continue home meds (5) Depression Code(s): F32.9 - MAJOR DEPRESSIVE DISORDER, SINGLE EPISODE, UNSPECIFIED Status : Chronic QualifierTitle: Depression Type: major depressive disorder Major depression recurrence: recurrent Active/Remission status: remission status unspecified Qualified Code(s): F33.9 - Major depressive disorder, recurrent, unspecified Plan: -Continue home meds (6) HTN (hypertension), benign Code(s): I10 - ESSENTIAL (PRIMARY) HYPERTENSION Status: Chronic Plan: -BP 120s/70s -Will resume home meds, will monitor for low BP -Will make treatment changes as needed. (7) CKD (chronic kidney disease) stage 3, GFR 30-59 ml/min Code(s): N18.3 - CHRONIC KIDNEY DISEASE, STAGE 3 (MODERATE) Status: Acute Plan: -Pending Nephrology recs, Appreciate Dr. Calixto's recs - Monitor with BMP - Plan Plan: Dispostion: Stable, Electrolytes have proved to be difficult to control. Will replenish. <Sanjay Rao - Last Filed: 08/15/17 09:50> (1) Hypokalemia Code(s): E87.6 - HYPOKALEMIA Status: Acute (2) Atrial fibrillation Code(s): I48.91 - UNSPECIFIED ATRIAL FIBRILLATION Status: Chronic Qualifiers: Atrial fibrillation type: chronic Qualified Code(s): I48.2 - Chronic atrial fibrillation (3) HTN (hypertension), benign Code(s): I10 - ESSENTIAL (PRIMARY) HYPERTENSION Status: Chronic (4) BPH (benign prostatic hyperplasia) Code(s): N40.0 - BENIGN PROSTATIC HYPERPLASIA WITHOUT LOWER URINRY TRACT SYMP Status: Chronic Qualifiers: Lower urinary tract symptom presence: presence of symptoms unspecified (5) Diastolic CHF Code(s): I50.30 - UNSPECIFIED DIASTOLIC (CONGESTIVE) HEART FAILURE Status: Chronic Qualifiers: Heart failure chronicity: chronic Qualified Code(s): I50.32 - Chronic diastolic (congestive) heart failure (6) Depression Code(s): F32.9 - MAJOR DEPRESSIVE DISORDER, SINGLE EPISODE, UNSPECIFIED Status : Chronic Qualifiers: Depression Type: major depressive disorder Major depression recurrence: recurrent Active/Remission status: remission status unspecified Qualified Code(s): F33.9 - Major depressive disorder, recurrent, unspecified <Ruperto Casarez - Last Filed: 08/15/17 10:01> Attending Addendum - Attending Addendum Date/Time: 08/15/17 0959 I personally evaluated the patient and discussed the management with Dr. Rao. I agree with the History, Examination, Assessment and Plan documented above with any addition or exceptions noted below. Aldosterone and Renin levels pending. Appreciate cards and Nephro care. Will need to have at least 24 hours without requiring IV potassium replacement before consideration of discharge. Hopefully spironolactone will help. <Ruperto Casarez - Last Filed: 08/15/17 10:01>
[2017-08-15] MEDS ORDERED: Furosemide 40 MG TAB PO SCH (07:30)
[2017-08-15] MEDS: Spironolactone 25 MG TAB PO SCH (08:53)
[2017-08-15] MEDS: Apixaban 5 MG TAB PO SCH ×2 (08:53→20:16)
[2017-08-15] MEDS: Digoxin 0.125 MG TAB PO SCH (08:53)
[2017-08-15] MEDS: Magnesium Chloride 64 MG TAB PO SCH ×2 (10:07→20:17)
--- NOTE | 2017-08-15 10:34 | PRG ---
DATE OF SERVICE: 08/15/2017 RENAL MEDICINE SUBJECTIVE: Mr. Abad is a 62-year-old white male with known history of cardiac arrhythmias, atrial flutter, status post multiple cardiac ablation, status post cardioversion and was seen by the Renal Service for his hypokalemia and renal dysfunction. He has been treated empirically with IV volume re pletion. Adjustment of his Lasix has been done. He is currently taking only once a day Lasix at 40 mg tab once a day. However, this morning still noted to be hypokalemic. Please note I felt that hyp okalemia may be related to diuretic-induced hypokalemia. He tells me he never had problems with hypo kalemia in the past. He has been started on spironolactone and K-Dur. This morning, has no new complaints, no chest pain or shortness of breath. PHYSICAL EXAMINATION: VITAL SIGNS: Blood pressure 143/68, heart rate 60, respiratory rate 17, temperature 98.4, pulse ox 9 5%. GENERAL: Noted to be awake, alert, comfortable, not in overt distress. SKIN: Adequate turgor. HEENT: He has pinkish conjunctivae, anicteric sclerae. NECK: No neck mass, no carotid bruits, no JVD. CHEST: No deformities. LUNGS: Clear breath sounds. No wheezing, no crackles. HEART: Normal sinus rhythm. No murmurs, no gallops, no rubs. ABDOMEN: Globular, soft, nontender, no masses. EXTREMITIES: No edema, no deformities. MEDICATIONS: Medications of 08/15/2017 reviewed. LABORATORY DATA AND IMAGING DATA: 1. Laboratories of 08/15/2017; white count 8.2, hemoglobin 11.6. Sodium 136, potassium 2.8, chlorid e 91, carbon dioxide 37, BUN 28, creatinine 1.27, glucose 128, calcium 9.3. 2. Renal ultrasound showed multiple simple cysts, no hydronephrosis, no masses. 3. Urinalysis was benign. ASSESSMENT AND PLAN: 1. Acute kidney injury on top of his chronic renal failure, superimposed prerenal azotemia. Much im proved with adjustment of diuretics and IV volume repletion. Creatinine now is near normal. 2. Hypokalemia. Patient is started on spironolactone 25 mg tab once a day. In addition, we will di scontinue the furosemide. Continue p.r.n. potassium replacement. Continue maintenance KCl at 40 mEq tab once a day. We will be rechecking basic metabolic profile in a.m. Please note we are still jina iting for ordered plasma aldosterone plasma renin.
--- NOTE | 2017-08-15 14:43 | PRG ---
DATE OF SERVICE: 08/15/2017 SUBJECTIVE: Mr. Abad is doing well. He maintains sinus rhythm. His potassium remains low at 2.8. OBJECTIVE: VITAL SIGNS: Blood pressure 121/58, pulse 65, temperature 98.7. LUNGS: Clear to auscultation. CARDIAC: Regular rate and rhythm. ABDOMEN: Soft, nontender, nondistended. EXTREMITIES: No edema. IMPRESSION: 1. Hypokalemia. 2. Atrial fibrillation. RECOMMENDATIONS: Mr. Abad appears to be maintaining sinus rhythm. Dr. Calixto is evaluating the patie nt for hypokalemia. His Aldactone has been started. Reassess in a.m. If potassium is stable, would be okay for discharge.
[2017-08-15 15:59] LABS: Anion Gap 12 mmol/L (10-20); BUN (Urea Nitrogen) 23 mg/dL (8.4-25.7); Calc. Creatinine Clearance 116 mL/min (70-130); Calcium 9.5 mg/dL (7.8-10.44); Carbon Dioxide 37 mmol/L (22-29); Chloride 91 mmol/L (98-107); Estimated GFR-MDRD 52; Glucose 177 mg/dL (70-105); Magnesium 2.2 mg/dL (1.6-2.6); Sodium 137 mmol/L (136-145)
[2017-08-15 16:00] LABS: Potassium 2.7 mmol/L (3.5-5.1)
[2017-08-15] MEDS ORDERED: Potassium Chloride 40 MEQ in Sodium Chloride 0.9% 250 ML 250 ML IVPB SCH (16:15)
[2017-08-15 20:08] LABS: Potassium 3.2 mmol/L (3.5-5.1)
[2017-08-15] MEDS: Tamsulosin HCl 0.4 MG CAP PO SCH (20:17)
[2017-08-16 05:03] LABS: Anion Gap 11 mmol/L (10-20); BUN (Urea Nitrogen) 19 mg/dL (8.4-25.7); Calc. Creatinine Clearance 151 mL/min (70-130); Carbon Dioxide 34 mmol/L (22-29); Chloride 95 mmol/L (98-107); Estimated GFR-MDRD 68; Glucose 140 mg/dL (70-105); Potassium 3.2 mmol/L (3.5-5.1); Sodium 137 mmol/L (136-145)
[2017-08-16] MEDS ORDERED: Potassium Chloride 20 MEQ TAB PO SCH ×2 (06:15→08:00)
--- NOTE | 2017-08-16 06:18 | PDOC.FM ---
- Subjective Subjective: Patient had a good night. He was up and walking without problem. He has had normal BMs and urinating normally. He denies chest pain, sob, n/v/d. He states his heart has stayed in rhythm all night. Overall he feels well and has no other complaints this morning. - Objective Vital Signs & Weight: Vital Signs (12 hours) Temp Pulse Resp BP Pulse Ox 08/16/17 04:04 97.6 F 64 18 128/70 93 L 08/15/17 20:16 99.0 F 63 18 123/63 95 08/15/17 20:07 99.0 F 63 18 Weight Weight 149.867 kg I&O: 08/14/17 08/15/17 08/16/17 05:59 06:59 06:59 Intake Total 960 Output Total 1750 Balance -790 Result Diagrams: 08/15/17 04:10 08/16/17 04:06 <Sanjay Rao - Last Filed: 08/16/17 08:11> - Objective Vital Signs & Weight: Vital Signs (12 hours) Temp Pulse Resp BP BP Pulse Ox 08/16/17 08:17 70 08/16/17 08:04 98.8 F 70 18 133/65 93 L 08/16/17 08:00 98.8 F 70 18 08/16/17 04:04 97.6 F 64 18 128/70 93 L Weight Weight 149.867 kg I&O: 08/15/17 08/16/17 08/17/17 06:59 06:59 06:59 Intake Total 960 Output Total 1750 600 Balance -790 -600 Result Diagrams: 08/15/17 04:10 08/16/17 04:06 <Yoel Storm - Last Filed: 08/16/17 10:59> Phys Exam - Physical Examination HEENT: moist MMs Neck: no nodes Respiratory: no wheezing, clear to auscultation bilateral Cardiovascular: RRR, no significant murmur Gastrointestinal: soft, non-tender, no distention, positive bowel sounds Musculoskeletal: no edema Neurological: non-focal, normal sensation, moves all 4 limbs Lymphatic: no nodes Psychiatric: normal affect, A&O x 3 Skin: no rash <Sanjay Rao - Last Filed: 08/16/17 08:11> Dx/Plan (1) Hypokalemia Code(s): E87.6 - HYPOKALEMIA Status: Acute Plan: Place in telemetry observation - Potassium this am 3.2, increased to 40mEq BID - Should be ready for discharge with close follow up - Scheduled Mg - In light of hypertension and hypokalemia, will rule out hyperaldersteronism, awaiting results - Nephrology has added Spironolactone (2) Atrial fibrillation Code(s): I48.91 - UNSPECIFIED ATRIAL FIBRILLATION Status: Chronic QualifierTitle: Atrial fibrillation type: chronic Qualified Code(s): I48.2 - Chronic atrial fibrillation Plan: Continue home meds - Continue anticoagullation - Dr. Monzon consulted, cardioversion failed - Monitor on telemetry - Maintaining rhythm currently, no breakthrough A-fib (3) Diastolic CHF Code(s): I50.30 - UNSPECIFIED DIASTOLIC (CONGESTIVE) HEART FAILURE Status: Chronic QualifierTitle: Heart failure chronicity: chronic Qualified Code(s): I50.32 - Chronic diastolic (congestive) heart failure Plan: -ECHO results could not determine diastolic CHF because of A-fib - EF 50-55% -Will make treatment changes as needed -Currently asymptomatic (4) BPH (benign prostatic hyperplasia) Code(s): N40.0 - BENIGN PROSTATIC HYPERPLASIA WITHOUT LOWER URINRY TRACT SYMP Status: Chronic QualifierTitle: Lower urinary tract symptom presence: presence of symptoms unspecified Plan: -Continue home meds (5) Depression Code(s): F32.9 - MAJOR DEPRESSIVE DISORDER, SINGLE EPISODE, UNSPECIFIED Status : Chronic QualifierTitle: Depression Type: major depressive disorder Major depression recurrence: recurrent Active/Remission status: remission status unspecified Qualified Code(s): F33.9 - Major depressive disorder, recurrent, unspecified Plan: -Continue home meds (6) HTN (hypertension), benign Code(s): I10 - ESSENTIAL (PRIMARY) HYPERTENSION Status: Chronic Plan: -BP 120s/70s -Will resume home meds, will monitor for low BP -Will make treatment changes as needed. (7) CKD (chronic kidney disease) stage 3, GFR 30-59 ml/min Code(s): N18.3 - CHRONIC KIDNEY DISEASE, STAGE 3 (MODERATE) Status: Acute Plan: -Pending Nephrology recs, Appreciate Dr. Calixto's recs - Monitor with BMP - Plan Plan: Disposition: Stable, Will be able for discharge today with follow up with PCP. <Sanjay Rao - Last Filed: 08/16/17 08:11> Attending Addendum - Attending Addendum Date/Time: 08/16/17 1058 I personally evaluated the patient and discussed the management with Dr. Rao I agree with the History, Examination, Assessment and Plan documented above with any addition or exceptions noted below. Will follow up outpatient Potassium level with PCP. Arrangement made preclinical lab. <Yoel Storm - Last Filed: 08/16/17 10:59>
[2017-08-16 08:04] VITALS: BP 133/65; TEMP 98.8
[2017-08-16] MEDS: Magnesium Chloride 64 MG TAB PO SCH (08:17)
[2017-08-16] MEDS: Apixaban 5 MG TAB PO SCH (08:17)
[2017-08-16] MEDS: Spironolactone 25 MG TAB PO SCH (08:17)
[2017-08-16] MEDS: Digoxin 0.125 MG TAB PO SCH (08:17)
[2017-08-16] MEDS ORDERED: Spironolactone 25 MG TAB PO SCH ×2 (09:00→09:15)
--- NOTE | 2017-08-16 09:25 | PRG ---
DATE OF SERVICE: 08/16/2017 SUBJECTIVE: Mr. Abad is a 62-year-old white male who was seen by the Renal Service for his acute k idney injury as well as hypokalemia. Plasma aldosterone and plasma renin has been ordered for this p atient which currently is still pending. Renal ultrasound did not show any overt adrenal mass. His hypokalemia is being addressed. He is currently on potassium supplementation and spironolactone. This a.m., I have ordered to increase his spironolactone from 25 to 50 mg tab q.a.m. No other comp laints, no chest pain or shortness of breath. PHYSICAL EXAMINATION: VITAL SIGNS: Blood pressure is 133/65, heart rate 70, respiratory rate 18, temperature 98.8, pulse o x 93%. GENERAL: Noted to be awake, alert, comfortable, obese, not in distress. SKIN: Adequate turgor. HEENT: He has pinkish conjunctivae, anicteric sclerae. NECK: No neck mass, no carotid bruits, no JVD. CHEST: No deformities. LUNGS: Clear breath sounds, no wheezing, no crackles. HEART: Normal sinus rhythm. No murmur, no gallops, no rubs. ABDOMEN: Globular, soft, nontender, no masses. EXTREMITIES: No edema, no deformities. MEDICATIONS: Medications of 08/16/2017 reviewed. LABORATORY DATA: Laboratories of 08/15/2017, hemoglobin 11.6. On 08/16/2017, sodium 137, potassium 3.2, chloride 95, carbon dioxide 34, BUN 19, creatinine 1.1, glucose 140, calcium 9, magnesium is 2.2 . ASSESSMENT AND PLAN: 1. Hypokalemia. Initially, this was thought to be diuretic induced. I have discontinued the diuret ics yesterday. We will continue to monitor the patient's potassium off furosemide. He is currently on KCl 40 mEq twice a day as well as increased dose spironolactone 50 mg tab once a day. He will hav e recheck of basic metabolic panel in 3 days - he has a follow up with his PCP and will see the patie nt in renal clinic in 1-2 weeks. 2. Acute kidney injury - resolved with discontinuation and adjustment of the furosemide. Creatinine now is within normal. 3. Chronic atrial fibrillation/atrial flutter - followed up by Cardiology. Status post cardiac EP s tudies and cardioversion. Agree with current management.
--- NOTE | 2017-08-16 10:16 | PDOC.CTH ---
Cardiology Progress Note - Subjective EP progress note: Mr Abad has done well overnight and is without cardiac complaint. Denies chest pain, pressure, heart racing, palpitations, dizziness, syncope, or near syncope. He has been up walking around without recurrence of passing out or weakness. Reports normal voiding. Anticipating DC home today. 10 point ROS unremarkable. - Objective Vital Signs Temp Pulse Resp BP BP Pulse Ox 08/16/17 08:17 70 08/16/17 08:04 98.8 F 70 18 133/65 93 L 08/16/17 04:04 97.6 F 64 18 128/70 93 L Weight 330 lb 6.4 oz 08/15/17 08/16/17 08/17/17 06:59 06:59 06:59 Intake Total 960 Output Total 1750 600 Balance -790 -600 - Physical Examination General/Neuro: alert & oriented x3, NAD Neck: carotid US brisk, no JVD present Lungs: CTA, unlabored respirations Heart: RRR Abdomen: NT/ND (obese) - Telemetry Telemetry Rhythm: NSR - Labs Result Diagrams: 08/15/17 04:10 08/16/17 04:06 - Assessment/Plan 1. Early recurrence of atrial arrhythmias s/p multiple previous ablations. Failed DCCV but spontaneously converted to NSR that evening and has been maintained with only brief paroxysmal episodes of rhythm irregularity. Rates well controlled. Tikosyn was stopped this hospitalization. We will continue to monitor patient remotely via his ILR. Will follow up in clinic in near future. 2. Chronic renal failure with recent acute kidney injury- Creat 1.89 on admission, now 1.1. Managed by nephrology. Diuretics and potassium replacement being adjusted with labs pending. 3. Hypokalemia- 3.2 this AM. Replacement was increased. K+ to be checked as OP in 2 days (order provided for BMP) and to follow up with PCM. 4.OAC- continue eliquis.
--- NOTE | 2017-08-16 14:12 | DIS-2 ---
DATE OF ADMISSION: 08/13/2017 DATE OF DISCHARGE: 08/16/2017 RESIDENT: Sanjay Rao M.D. ADMITTING ATTENDING: Ruperto Casarez M.D. DISCHARGE ATTENDING: Yoel Storm M.D. CONSULTATIONS: With Electrophysiology and Dr. Monzon and Nephrology with Dr. Calixto as well as the walking program. PROCEDURES: The patient underwent an echocardiogram on 08/13/2017 that showed a left ventricle ejection fraction estimated at 55%, diastolic dysfunction. Diastolic and systolic function could not be assessed secondary to atrial fibrillation, mild mitral regurgitation was present. Mild tricuspid regurgitation. The patient also underwent a cardioversion with Dr. Monzon that was unsuccessful on 08/13/2017. Next, the patient underwent a renal ultrasound on 08/14/2017 that showed no evidence of hydronephrosis. PRIMARY DIAGNOSES: 1. Hypokalemia. 2. Atrial fibrillation. 3. Diastolic congestive heart failure. 4. Benign prostatic hypertrophy. 5. Depression. 6. Hypertension. 7. Chronic kidney disease stage 3. DISCHARGE MEDICATIONS: 1. Effexor 75 mg p.o. daily. 2. Tamsulosin 0.4 mg p.o. at bedtime. 3. Apixaban 5 mg p.o. b.i.d. 4. Diltiazem 60 mg p.o. t.i.d. 5. Metoprolol succinate 50 mg daily. 6. Naproxen 440 mg daily. 7. Digoxin 0.125 mg daily. 8. Magnesium chloride 64 mg p.o. b.i.d. 9. Potassium chloride 40 mEq p.o. b.i.d. 10. Spironolactone 50 mg p.o. q.a.m. with meals. DISCONTINUED MEDICATIONS: 1. Furosemide 40 mg b.i.d. 2. Tikosyn 0.5 mg p.o. b.i.d. 3. Potassium chloride 20 mEq p.o. b.i.d. 4. Metoprolol tartrate 100 mg p.o. b.i.d. HISTORY OF PRESENT ILLNESS AND HOSPITAL COURSE: The patient is a pleasant 62- year-old male with past medical history of atrial fibrillation, hypertension, depression, scheduled to have a cardioversion this morning. His admission labs showed potassium 2.6. The patient states he feels well overall today. He denies any dizziness, chest pain, dyspnea, nausea and weakness. He has had atrial fibrillation for years, but states has been worsening recently. He has had frequent dizziness and multiple episodes of syncope in the recent weeks. He also reports several attempts at ablation that have failed. During this hospitalization, Dr. Monzon attempted a cardioversion that failed with his heart rate staying in the 120s. The patient was then given a pharmacological therapy to decrease his heart rate to a tolerable level and also will be in the 120s at around midnight. On 08/14/2017, patient spontaneously converted to a normal sinus rhythm and down into the rates of the 60s and 70s. The patient did not have any chest pain, denied vision changes and no longer had the palpitations or the lightheadedness or dizziness that he was experiencing previously. All other vital signs are within normal limits. The patient has a notable lab values that of a potassium that was difficult to control with a 2.6 on day of admission, was repleted to 3.2, fell down to as low as 2.7 again and on day of discharge, was repleted to 3.2 with the understanding that he would need to increase his own potassium doses as well as follow up with his PCP to ensure that he is having good control of his potassium levels. Patient also had a magnesium level that was 2.5 on day of admission and was rechecked at 2.2 on 08/15/2017. The patient otherwise had no other notable lab values. The patient has frequent understanding of his condition and the worsening of it and with some of the consequences of his disease. The patient did have some chronic kidney disease that has been a longstanding issue for him over the last year or so and so Dr. Calixto with Nephrology was consulted. Dr. Calixto with Nephrology did start spironolactone to supplement his diuretic regimen in combination with furosemide. The thought behind this was to increase his potassium-sparing abilities as well as achieving diuretic effect for his diastolic CHF. The patient otherwise had no further complications during this hospitalization and was discharged on appropriate condition. DISPOSITION: Stable. DISCHARGE INSTRUCTIONS: 1. Location: To be discharged home into his own care. 2. Diet will be heart healthy diet. 3. Activity will be with cardiopulmonary limitations and follow up will be with his primary care provider, Dr. Carlos in 3 days to ensure that his potassium levels have stayed within normal limits and he has no further episodes of atrial fibrillation. The patient will also be followed up with [facility] for some laboratory values of aldosterone and renin to finish his workup of hyperaldosteronism. We wish this patient best of luck and hopefully has no further complications from this disease. TERESA
[2017-08-17] MEDS ORDERED: Spironolactone 25 MG TAB PO SCH (08:00)
== END 2017-08-16 11:32 | disposition home or self-care (01) ==
LOC: CCL 05:52 → 2SW 11:49
PROVIDERS: ADMIT Family Medicine; ATTEND Family Medicine
PROC: 5A2204Z Restoration of Cardiac Rhythm, Single (ICD-10-PCS; principal; 2017-08-16)
DX: I48.1 Persistent atrial fibrillation (principal); J98.4 Other disorders of lung; F32.9 Major depressive disorder, single episode, unspecified; I48.92 Unspecified atrial flutter; E87.6 Hypokalemia; I13.0 Hypertensive heart and chronic kidney disease with heart failure and stage 1 through stage 4 chronic kidney disease, or unspecified chronic kidney disease; N18.3 Chronic kidney disease, stage 3 (moderate); I50.30 Unspecified diastolic (congestive) heart failure; N17.9 Acute kidney failure, unspecified; N40.0 Benign prostatic hyperplasia without lower urinary tract symptoms; E66.9 Obesity, unspecified; Z68.41 Body mass index [BMI] 40.0-44.9, adult; Z79.899 Other long term (current) drug therapy; Z98.890 Other specified postprocedural states
CPT/HCPCS: 36415; 76770; 80048; 81001; 82088; 83735; 84244; 85025; 85610; 85730; 92960; 93005; 93010; 93306; 96361; 96365; 96366; A4216; G0378; J2704; J3480; J7050; J8499

== ENCOUNTER 2017-10-12 09:54 | Outpatient (CLI) | payer OTHER ==
[2017-10-12 11:05] LABS: Mean Corpuscular HGB CONC 31.9 g/dL (32.0-36.0); Mean Corpuscular Hemoglobin 27.2 pg (27.0-31.0); Mean Corpuscular Volume 85.3 fl (80.0-94.0); Mean Platelet Volume 7.8 fL (7.4-10.4); Platelet Count 173 thou/uL (130-400); RBC Distribution Width 15.9 % (11.5-14.5); Red Blood Cell (RBC) Count 4.79 mill/uL (4.70-6.10); White Blood Cell (WBC) Count 8.5 thou/uL (4.8-10.8)
[2017-10-12 11:13] LABS: INR-International Normal Ratio 1.3; PTT 34.5 SEC (22.9-36.1); Prothrombin Time 16.1 SEC (12.0-14.7)
[2017-10-12 11:45] LABS: Anion Gap 16 mmol/L (10-20); BUN (Urea Nitrogen) 20 mg/dL (8.4-25.7); Calc. Creatinine Clearance 0 mL/min (70-130); Carbon Dioxide 24 mmol/L (22-29); Chloride 102 mmol/L (98-107); Estimated GFR-MDRD 63; Glucose 99 mg/dL (70-105); Potassium 5.1 mmol/L (3.5-5.1); Sodium 137 mmol/L (136-145)
== END 2017-10-12 09:55 | disposition home or self-care (01) ==
LOC: LABBT 09:54
PROVIDERS: ATTEND Internal Medicine Cardiovascular Disease
DX: Z01.818 Encounter for other preprocedural examination (principal); I48.91 Unspecified atrial fibrillation
CPT/HCPCS: 80048; 85027; 85610; 85730; 93005; 93010

== ENCOUNTER 2017-10-14 07:19 | Day surgery (SDC) | payer OTHER ==
[2017-10-12 10:25] VITALS: BMI 39.5
--- NOTE | 2017-10-14 08:49 | OP ---
DATE OF PROCEDURE: 10/14/2017 REFERRING PHYSICIAN: Dr. Mccarty. PROCEDURE: Cardioversion. SURGEON: Dr. Melecio Monzon INDICATIONS FOR PROCEDURE: Mr. Abad is a 62-year-old male with prior history of diastolic heart fa ilure, restrictive lung disease, a normal LVEF, who has also present atrial fibrillation, he has had multiple ablations, most recently in July 2017. He was on Tikosyn for a while, but that was stop ped. Now he is here after flecainide dosing and continued Eliquis administration, ____ these medicat ions as well. Current in sinus rhythm on the flecainide medication. PROCEDURE: The patient received deep sedation by the anesthesia specialist with adequate level of se dation achieved. A synchronized 150 joules shock was attempted, which failed to convert him back to sinus rhythm. After that 360 joule shock converted him back to sinus rhythm. Initially bradycardia was seen in the 40s, then improved with decreasing sedation level. PLAN: Continue flecainide, stop digoxin and diltiazem unless palpitations recur. Continue Eliquis a s well. A routine follow up in the office.
[2017-10-14] MEDS ORDERED: PHENYLEPHRINE-NS 100 MCG/ML 10 ML SYRINGE ONE (12:42)
[2017-10-14] MEDS ORDERED: PROPOFOL 200 MG/20 ML VIAL ONE (12:42)
== END 2017-10-14 08:54 | disposition home or self-care (01) ==
LOC: CCL 07:19
PROVIDERS: ATTEND Internal Medicine Cardiovascular Disease
PROC: 5A2204Z Restoration of Cardiac Rhythm, Single (ICD-10-PCS; principal; 2017-10-14)
DX: I48.1 Persistent atrial fibrillation (principal); J98.4 Other disorders of lung; I11.0 Hypertensive heart disease with heart failure; I50.30 Unspecified diastolic (congestive) heart failure; F32.9 Major depressive disorder, single episode, unspecified; E66.9 Obesity, unspecified; Z68.39 Body mass index [BMI] 39.0-39.9, adult; Z79.01 Long term (current) use of anticoagulants; Z79.899 Other long term (current) drug therapy; Z98.890 Other specified postprocedural states
CPT/HCPCS: 92960; 93005; 93010; J2704

== ENCOUNTER 2018-04-18 11:59 | Outpatient (CLI) | payer OTHER ==
--- NOTE | 2018-04-18 15:13 | MRI ---
LUMBAR SPINE MRI WITHOUT IV CONTRAST: History: 62-year-old male with history of M48.062 neurogenic claudication. FINDINGS: There are generalized disc desiccation changes and ligament and facet hypertrophic changes. The conus medullaris region is unremarkable, terminating at L1. Large body habitus lowers the sensitivity of t his study with low signal to noise ratio. There are desiccation changes at L1-2 and L2-3 and L3-4 wit hout significant canal, lateral recess, or foraminal stenosis. L4-5: There is more severe disc desiccation change with diffuse disc bulging with some mild central c anal and lateral recess stenosis and bilateral foraminal stenosis. There is prominent epidural fat at this level and extending caudally into the sacrum. L5-S1: Unremarkable. IMPRESSION: Somewhat overall narrow AP dimension of the lumbar spinal canal with prominent amount of epidural fat noted at L4 and extending caudally into the sacrum. Disc bulging at L4-5 with some mild central fred l, lateral recess, and foraminal stenosis. No abnormal marrow signal. POS: [facility]
== END 2018-04-18 12:00 | disposition home or self-care (01) ==
LOC: BICMRI 11:59
PROVIDERS: ATTEND Neurological Surgery
DX: M48.062 Spinal stenosis, lumbar region with neurogenic claudication (principal); M51.9 Unspecified thoracic, thoracolumbar and lumbosacral intervertebral disc disorder
CPT/HCPCS: 71045; 72148

== ENCOUNTER 2018-05-27 13:42 | Outpatient (CLI) | payer OTHER ==
--- NOTE | 2018-05-27 16:23 | MRI ---
MRI CERVICAL SPINE NONCONTRAST: 05/27/18 HISTORY: 62-year-old male with M54.12 - cervical radicular pain. FINDINGS: Vertebral body heights are maintained. Alignment is normal. Cervical spinal canal is diffusely small in caliber on a congenital bases due to developmentally short pedicles. This is exacerbated by cervic al spondylosis as described below. Cervical spinal cord is normal in size and signal. C1-2: No additional findings. C2-3: Mild ligamentum flavum thickening. Mild to moderate central spinal canal stenosis almost entire ly on developmental basis. Small bilateral uncinate process osteophytes. Mild bilateral neural forami nal stenosis. Disc space maintained. No high grade facet DJD. C3-4: Mild ligamentum flavum thickening. Disc space maintained. Mild right degenerative facet changes . No high grade left degenerative facet changes. Mild central spinal canal stenosis. Bilateral uncina te process osteophytes, left greater than right. Moderate right neural foraminal stenosis. Moderate t o severe left neural foraminal stenosis. C4-5: Mild disc space narrowing. Mild, shallow broad-based disc-osteophytic bar complex slightly inde nts the ventral surface of the spinal cord. Mild ligamentum flavum thickening. Moderate-severe centra l spinal canal stenosis due to a combination of these factors superimposed on the developmentally sma ll caliber spinal canal. Mild to moderate right degenerative facet changes. Moderate left degenerativ e facet changes. Severe bilateral neural foraminal stenosis, left worse than right. C5-6: Disc space maintained. Mild, shallow broad-based disc-osteophytic bar complex abuts the ventral surface of the spinal cord. Moderate to severe central spinal canal stenosis. Bilateral small uncina te process osteophytes. Bilateral moderate to severe neural foraminal stenosis. Moderate right facet DJD. Incomplete visualization of the left facet complex on sagittal images. C6-7: Moderate disc space narrowing. Prominent broad based disc-osteophytic bar complex indents the ventral surface of the spinal cord, asymmetrically greater at the right lateral aspect of the spinal canal, effacing CSF signal, causing severe central spinal canal stenosis. Normal bilateral facet sanket nts. Moderately large bilateral uncinate process osteophytes. Severe bilateral neural foraminal steno sis. C7-T1: Moderate sized right uncinate process osteophytes. Moderate to large left uncinate process ost eophytes. Shallow, broad-based disc-osteophytic bar complex, greater at the left side than right. Mil d to moderate central spinal canal stenosis. Moderate to severe bilateral neural foraminal stenosis. IMPRESSION: 1. Developmentally small caliber spinal canal exacerbated by mild to moderate cervical spondylos is. 2. Severe central spinal canal stenosis and severe bilateral neural foraminal stenosis at C6-7. 3. Several other levels of severe bilateral neural foraminal stenosis. 4. Mild and moderate facet osteoarthrosis at multiple levels. POS: [facility]
== END 2018-05-27 13:43 | disposition home or self-care (01) ==
LOC: TBSIIMAG 13:42
PROVIDERS: ATTEND Neurological Surgery
DX: M47.22 Other spondylosis with radiculopathy, cervical region (principal); M48.02 Spinal stenosis, cervical region
CPT/HCPCS: 72141

== ENCOUNTER 2018-06-06 22:17 | Emergency (ER) | payer OTHER ==
[2018-06-06 23:25] LABS: #Basophils 0.1 thou/uL (0.0-0.2); #Eosinphils 0.1 thou/uL (0.0-0.7); #Monocytes 0.9 thou/uL (0.11-0.59); #Neutrophils 7.3 thou/uL (1.40-6.50); %Basophils 0.9 % (0.0-1.0); %Eosinophils 1.1 % (0.0-10.0); %Lymphocytes 19.4 % (21.0-51.0); %Monocytes 8.3 % (0.0-10.0); %Neutrophils 70.3 % (42.0-75.0); Hemoglobin 14.6 g/dL (14.0-18.0); Mean Corpuscular HGB CONC 32.9 g/dL (32.0-36.0); Mean Corpuscular Volume 91.2 fL (78.0-98.0); Mean Platelet Volume 8.2 fL (7.4-10.4); Platelet Count 143 thou/uL (130-400); RBC Distribution Width 13.2 % (11.5-14.5); Red Blood Cell (RBC) Count 4.85 mill/uL (4.70-6.10); White Blood Cell (WBC) Count 10.4 thou/uL (4.8-10.8)
[2018-06-06 23:35] LABS: ALT (SGPT) 48 U/L (8-55); AST (SGOT) 26 U/L (5-34); Alkaline Phosphatase 59 U/L (40-150); Anion Gap 19 mmol/L (10-20); BUN (Urea Nitrogen) 24 mg/dL (8.4-25.7); Bilirubin, Total 0.4 mg/dL (0.2-1.2); Calc. Creatinine Clearance 0 mL/min (70-130); Calcium 9.4 mg/dL (7.8-10.44); Carbon Dioxide 22 mmol/L (22-29); Chloride 99 mmol/L (98-107); Estimated GFR-MDRD 68; Globulin 3.4 g/dL (2.4-3.5); Glucose 168 mg/dL (70-105); Potassium 3.8 mmol/L (3.5-5.1); Protein, Total 7.4 g/dL (6.0-8.3); Sodium 136 mmol/L (136-145)
--- NOTE | 2018-06-06 23:47 | CT ---
BRAIN CT WITHOUT IV CONTRAST: HISTORY: A 62-year-old male with a history of syncope. Head injury. The patient is on blood thinners. FINDINGS: There is no focal mass or midline shift. No intraaxial or extraaxial hemorrhage. There is some atro phy and chronic white matter ischemic change. Sinuses and mastoids are clear. IMPRESSION: No acute intracranial mass, hemorrhage, or other acute process. POS: [facility]
--- NOTE | 2018-06-06 23:49 | CT ---
CERVICAL SPINE CT SCAN WITHOUT IV CONTRAST: HISTORY: A 62-year-old male with a history of head injury after a fall from standing. Patient on blood thinne r. Syncope. FINDINGS: Fairly extensive multilevel disk osteophytosis involving the cervical spine. Facet arthrosis. Overa ll straightening of the cervical spine. No evidence for acute fracture or facet dislocation. IMPRESSION: Cervical spondylosis. No evidence for acute fracture or facet dislocation. POS: [facility]
--- NOTE | 2018-06-06 23:53 | RAD ---
RIGHT TIBIA AND FIBULA TWO VIEWS: HISTORY: A 62-year-old male with a history of injury from a fall. FINDINGS: Degenerative changes of the knee joint. No acute fracture or dislocation. Small, thin focus of soft tissue calcification or ossification medially and superficially. POS: [facility]
--- NOTE | 2018-06-06 23:55 | RAD ---
CHEST ONE VIEW PORTABLE: HISTORY: A 62-year-old male with a history of syncope, a history of falls, and atrial fibrillation. COMPARISON: 05/22/2016 FINDINGS: Poor inspiratory effort. Minimal cardiomegaly. Mild bilateral vascular congestion without overt con fluent pneumonia or overt edema. Left-sided loop recorder. IMPRESSION: 1. Minimal cardiomegaly. 2. No confluent pneumonia, overt edema, or other acute process. POS: [facility]
[2018-06-07] MEDS ORDERED: Adacel (T-DAP) 0.5 ML SYRINGE ONE (00:17)
[2018-06-07] MEDS ORDERED: Bacitracin Zinc 1 Packet ONE ×2 (00:17)
== END 2018-06-07 01:00 | disposition home or self-care (01) ==
LOC: SCSER 22:17
DX: S91.214A Laceration without foreign body of right lesser toe(s) with damage to nail, initial encounter (principal); S00.33XA Contusion of nose, initial encounter; S50.12XA Contusion of left forearm, initial encounter; S50.11XA Contusion of right forearm, initial encounter; S80.11XA Contusion of right lower leg, initial encounter; I11.0 Hypertensive heart disease with heart failure; S00.81XA Abrasion of other part of head, initial encounter; R55 Syncope and collapse; I50.9 Heart failure, unspecified; I48.91 Unspecified atrial fibrillation; Z79.899 Other long term (current) drug therapy; Z79.82 Long term (current) use of aspirin; W17.89XA Other fall from one level to another, initial encounter
CPT/HCPCS: 70450; 71045; 72125; 80053; 84484; 85025; 90471; 90715; 93005

== ENCOUNTER 2021-06-16 12:21 | Emergency (ER) | payer OTHER ==
[2021-06-16 14:17] LABS: #Eosinphils 0.2 thou/uL (0.0-0.7); #Lymphocytes 2.2 thou/uL (1.20-3.40); #Neutrophils 9.2 thou/uL (1.40-6.50); %Basophils 0.4 % (0.0-1.0); %Eosinophils 1.7 % (0.0-10.0); %Lymphocytes 17.3 % (21.0-51.0); %Neutrophils 72.7 % (42.0-75.0); Hemoglobin 15.9 g/dL (14.0-18.0); Mean Corpuscular Volume 91.2 fL (78.0-98.0); Mean Platelet Volume 7.6 fL (7.4-10.4); Platelet Count 177 thou/uL (130-400); RBC Distribution Width 13.4 % (11.5-14.5); Red Blood Cell (RBC) Count 5.11 mill/uL (4.70-6.10); White Blood Cell (WBC) Count 12.7 thou/uL (4.8-10.8)
[2021-06-16 14:41] LABS: ALT (SGPT) 37 U/L (8-55); AST (SGOT) 29 U/L (5-34); Albumin 4.1 g/dL (3.4-4.8); Alkaline Phosphatase 67 U/L (40-110); Anion Gap 17 mmol/L (10-20); BUN (Urea Nitrogen) 24 mg/dL (8.4-25.7); Bilirubin, Total 0.6 mg/dL (0.2-1.2); Calc. Creatinine Clearance 0 mL/min (70-130); Carbon Dioxide 28 mmol/L (23-31); Chloride 97 mmol/L (98-107); Glucose 136 mg/dL (80-115); Potassium 4.2 mmol/L (3.5-5.1); Protein, Total 8.1 g/dL (5.8-8.1); Sodium 138 mmol/L (136-145)
== END 2021-06-16 16:39 | disposition home or self-care (01) ==
LOC: ERS 12:21
DX: L03.116 Cellulitis of left lower limb (principal); I11.0 Hypertensive heart disease with heart failure; I50.9 Heart failure, unspecified; I48.91 Unspecified atrial fibrillation
CPT/HCPCS: 36415; 80053; 85025; 85379

== ENCOUNTER 2022-02-22 22:46 | Inpatient (IN) | payer OTHER, SELFPAY ==
[2022-02-22 23:40] LABS: #Eosinphils 0.1 thou/uL (0.0-0.7); #Monocytes 0.8 thou/uL (0.11-0.59); %Basophils 0.2 % (0.0-1.0); %Eosinophils 1.1 % (0.0-10.0); %Lymphocytes 10.6 % (21.0-51.0); %Monocytes 7.7 % (0.0-10.0); %Neutrophils 80.4 % (42.0-75.0); Hemoglobin 13.1 g/dL (14.0-18.0); Mean Corpuscular HGB CONC 33.3 g/dL (32.0-36.0); Mean Platelet Volume 8.5 fL (7.4-10.4); Platelet Count 117 thou/uL (130-400); RBC Distribution Width 14.8 % (11.5-14.5); Red Blood Cell (RBC) Count 4.37 mill/uL (4.70-6.10); White Blood Cell (WBC) Count 9.9 thou/uL (4.8-10.8)
[2022-02-22 23:55] LABS: ALT (SGPT) 16 U/L (8-55); AST (SGOT) 14 U/L (5-34); Alkaline Phosphatase 60 U/L (40-110); Anion Gap 15 mmol/L (10-20); BUN (Urea Nitrogen) 24 mg/dL (8.4-25.7); Bilirubin, Total 0.5 mg/dL (0.2-1.2); Calc. Creatinine Clearance 0 mL/min (70-130); Calcium 9.5 mg/dL (7.8-10.44); Carbon Dioxide 28 mmol/L (23-31); Chloride 100 mmol/L (98-107); Estimated GFR 60; Globulin 3.3 g/dL (2.4-3.5); Glucose 178 mg/dL (80-115); Potassium 4.3 mmol/L (3.5-5.1); Protein, Total 7.3 g/dL (5.8-8.1); Sodium 139 mmol/L (136-145)
[2022-02-23 01:18] LABS: Digoxin 0.96 ng/mL (0.8-2.0)
[2022-02-23] MEDS ORDERED: Ondansetron PF 4 MG/2 ML Vial IVP PRN (02:52)
[2022-02-23] MEDS ORDERED: Atropine Sulfate 1 mg/10 ml Syringe IVP SCH (03:00)
[2022-02-23] MEDS ORDERED: HumaLOG 300 UNITS/3 ML VIAL SC PRN (03:05)
[2022-02-23] MEDS ORDERED: Dextrose 5% in Water 1,000 ML IV PRN (03:05)
[2022-02-23] MEDS ORDERED: Dextrose 50% Abboject 50 ML SYRINGE SLOW IVP PRN (03:05)
[2022-02-23 03:18] LABS: SARS-CoV-2 NAA Rapid Test Not Detected (NotDetected)
[2022-02-23 03:30] LABS: Troponin I 0.018 ng/mL (< 0.028)
[2022-02-23 03:59] LABS: #Eosinphils 0.1 thou/uL (0.0-0.7); #Lymphocytes 1.7 thou/uL (1.20-3.40); #Monocytes 0.7 thou/uL (0.11-0.59); #Neutrophils 8.4 thou/uL (1.40-6.50); %Eosinophils 0.9 % (0.0-10.0); %Lymphocytes 15.3 % (21.0-51.0); %Monocytes 6.7 % (0.0-10.0); %Neutrophils 77.1 % (42.0-75.0); Mean Corpuscular HGB CONC 31.9 g/dL (32.0-36.0); Mean Corpuscular Hemoglobin 28.8 pg (27.0-31.0); Mean Corpuscular Volume 90.1 fL (78.0-98.0); Mean Platelet Volume 8.7 fL (7.4-10.4); Platelet Count 125 thou/uL (130-400); RBC Distribution Width 14.9 % (11.5-14.5); Red Blood Cell (RBC) Count 4.53 mill/uL (4.70-6.10); White Blood Cell (WBC) Count 10.8 thou/uL (4.8-10.8)
[2022-02-23 04:28] LABS: Anion Gap 15 mmol/L (10-20); BUN (Urea Nitrogen) 26 mg/dL (8.4-25.7); Calc. Creatinine Clearance 0 mL/min (70-130); Calcium 9.7 mg/dL (7.8-10.44); Carbon Dioxide 26 mmol/L (23-31); Chloride 99 mmol/L (98-107); Estimated GFR 60; Glucose 162 mg/dL (80-115); Potassium 4.4 mmol/L (3.5-5.1); Sodium 136 mmol/L (136-145)
[2022-02-23 04:45] VITALS: BMI 41.0
[2022-02-23 07:07] LABS: Troponin I 0.017 ng/mL (< 0.028)
[2022-02-23] MEDS ORDERED: Iopamidol-370 76% 500 ML 1 ML ONE (15:05)
[2022-02-23] MEDS: hydrALAZINE 20 MG/ML VIAL SLOW IVP PRN ×4 (19:30→21:49)
[2022-02-23] MEDS ORDERED: NIFEdipine XL 60 MG TAB PO SCH (21:45)
[2022-02-23] MEDS ORDERED: Gabapentin 300 MG CAP PO SCH (22:15)
[2022-02-24 03:55] LABS: #Eosinphils 0.1 thou/uL (0.0-0.7); #Lymphocytes 2.1 thou/uL (1.20-3.40); #Monocytes 1.1 thou/uL (0.11-0.59); #Neutrophils 9.4 thou/uL (1.40-6.50); %Basophils 0.1 % (0.0-1.0); %Eosinophils 1.1 % (0.0-10.0); %Lymphocytes 16.4 % (21.0-51.0); %Monocytes 8.3 % (0.0-10.0); %Neutrophils 74.1 % (42.0-75.0); Hemoglobin 13.2 g/dL (14.0-18.0); Mean Corpuscular Volume 90.5 fL (78.0-98.0); Mean Platelet Volume 8.7 fL (7.4-10.4); Platelet Count 149 thou/uL (130-400); RBC Distribution Width 14.7 % (11.5-14.5); Red Blood Cell (RBC) Count 4.57 mill/uL (4.70-6.10); White Blood Cell (WBC) Count 12.7 thou/uL (4.8-10.8)
[2022-02-24 04:13] LABS: Anion Gap 15 mmol/L (10-20); BUN (Urea Nitrogen) 23 mg/dL (8.4-25.7); Calc. Creatinine Clearance 114 mL/min (70-130); Calcium 9.2 mg/dL (7.8-10.44); Carbon Dioxide 24 mmol/L (23-31); Chloride 101 mmol/L (98-107); Estimated GFR 57; Glucose 214 mg/dL (80-115); Magnesium 2.1 mg/dL (1.6-2.6); Sodium 136 mmol/L (136-145)
[2022-02-24] MEDS: Gabapentin 300 MG CAP PO SCH ×2 (08:55→20:10)
[2022-02-24] MEDS ORDERED: Iopamidol 370 76% 50 ML VIAL FS ONE (09:04)
[2022-02-24] MEDS ORDERED: Gentamicin 80 MG/2 ML VIAL ONE (09:07)
[2022-02-24] MEDS ORDERED: CEFAZOLIN 1 GM VIAL ONE (09:07)
[2022-02-24] MEDS ORDERED: Lidocaine 1% (PF) 30 ML VIAL ONE (09:07)
[2022-02-24] MEDS: Acetaminophen 325 MG TAB PO PRN ×3 (09:55→20:11)
[2022-02-24] MEDS ORDERED: Midazolam HCl 2 mg/2 ml Vial ONE (10:38)
[2022-02-24] MEDS ORDERED: ceFAZolin 2 GM/Dextrose 50 ML IVPB ONE (10:38)
[2022-02-24 11:40] VITALS: TEMP 97.3
[2022-02-24] MEDS: hydrALAZINE 20 MG/ML VIAL SLOW IVP PRN ×2 (16:20→23:49)
[2022-02-24] MEDS: Metoprolol Tartrate 100 MG TAB PO SCH (20:11)
[2022-02-25] MEDS: HumaLOG 300 UNITS/3 ML VIAL SC PRN ×3 (04:00→11:34)
[2022-02-25 04:13] LABS: Anion Gap 16 mmol/L (10-20); BUN (Urea Nitrogen) 17 mg/dL (8.4-25.7); Calc. Creatinine Clearance 165 mL/min (70-130); Calcium 9.4 mg/dL (7.8-10.44); Carbon Dioxide 22 mmol/L (23-31); Chloride 103 mmol/L (98-107); Estimated GFR 89; Glucose 176 mg/dL (80-115); Potassium 3.9 mmol/L (3.5-5.1); Sodium 137 mmol/L (136-145)
[2022-02-25] MEDS: hydrALAZINE 20 MG/ML VIAL SLOW IVP PRN (05:17)
[2022-02-25 08:34] LABS: #Eosinphils 0.2 thou/uL (0.0-0.7); #Lymphocytes 1.4 thou/uL (1.20-3.40); #Monocytes 0.7 thou/uL (0.11-0.59); %Basophils 0.3 % (0.0-1.0); %Eosinophils 1.5 % (0.0-10.0); %Lymphocytes 12.2 % (21.0-51.0); %Monocytes 6.4 % (0.0-10.0); %Neutrophils 79.6 % (42.0-75.0); Mean Corpuscular HGB CONC 31.5 g/dL (32.0-36.0); Mean Corpuscular Hemoglobin 28.5 pg (27.0-31.0); Mean Corpuscular Volume 90.7 fL (78.0-98.0); Mean Platelet Volume 7.8 fL (7.4-10.4); Platelet Count 157 thou/uL (130-400); RBC Distribution Width 14.9 % (11.5-14.5); Red Blood Cell (RBC) Count 4.89 mill/uL (4.70-6.10); White Blood Cell (WBC) Count 11.3 thou/uL (4.8-10.8)
[2022-02-25] MEDS: Gabapentin 300 MG CAP PO SCH (08:57)
[2022-02-25] MEDS: Metoprolol Tartrate 100 MG TAB PO SCH (08:57)
[2022-02-25] MEDS ORDERED: Lidocaine 5% Patch TD SCH (09:00)
[2022-02-25 11:53] VITALS: BP 143/69
[2022-02-25] MEDS ORDERED: Transdermal Patch Removal TOP SCH (21:00)
== END 2022-02-25 12:28 | disposition home or self-care (01) | DRG 242 ==
LOC: ERS 22:46 → IMCU/EMU 02-23 02:41
PROVIDERS: ADMIT Internal Medicine; ATTEND Internal Medicine
PROC: 0JH606Z Insertion of Pacemaker, Dual Chamber into Chest Subcutaneous Tissue and Fascia, Open Approach (ICD-10-PCS; principal; 2022-02-24)
PROC: 02H63JZ Insertion of Pacemaker Lead into Right Atrium, Percutaneous Approach (ICD-10-PCS; 2022-02-24)
PROC: 02HK3JZ Insertion of Pacemaker Lead into Right Ventricle, Percutaneous Approach (ICD-10-PCS; 2022-02-24)
DX: I49.5 Sick sinus syndrome (principal); S06.6X0A Traumatic subarachnoid hemorrhage without loss of consciousness, initial encounter; I50.32 Chronic diastolic (congestive) heart failure; N17.9 Acute kidney failure, unspecified; I13.0 Hypertensive heart and chronic kidney disease with heart failure and stage 1 through stage 4 chronic kidney disease, or unspecified chronic kidney disease; I48.0 Paroxysmal atrial fibrillation; N40.0 Benign prostatic hyperplasia without lower urinary tract symptoms; F32.A Depression, unspecified; I44.0 Atrioventricular block, first degree; D69.6 Thrombocytopenia, unspecified; W19.XXXA Unspecified fall, initial encounter; N18.9 Chronic kidney disease, unspecified; Z20.822 Contact with and (suspected) exposure to COVID-19; Z90.49 Acquired absence of other specified parts of digestive tract; Z79.82 Long term (current) use of aspirin; Z79.01 Long term (current) use of anticoagulants; Y92.008 Other place in unspecified non-institutional (private) residence as the place of occurrence of the external cause; Z79.84 Long term (current) use of oral hypoglycemic drugs; Z79.899 Other long term (current) drug therapy; Z98.890 Other specified postprocedural states
CPT/HCPCS: 33286; 36415; 36416; 70450; 71045; 71275; 72125; 75820; 80048; 80053; 80162; 83735; 84443; 84484; 85025; 85379; 93005; 93010; 97139; 99152; C1785; C1898; J0360; J0461; J0690; J1580; J1815; J2001; J2250; Q9967; U0002

== ENCOUNTER 2022-03-14 10:18 | Inpatient (IN) | payer OTHER ==
[2022-03-14 10:47] LABS: #Lymphocytes 0.6 thou/uL (1.20-3.40); #Monocytes 0.7 thou/uL (0.11-0.59); #Neutrophils 7.1 thou/uL (1.40-6.50); %Eosinophils 0.3 % (0.0-10.0); %Lymphocytes 6.7 % (21.0-51.0); %Monocytes 7.9 % (0.0-10.0); %Neutrophils 85.1 % (42.0-75.0); Hemoglobin 12.9 g/dL (14.0-18.0); Mean Corpuscular HGB CONC 32.4 g/dL (32.0-36.0); Mean Corpuscular Hemoglobin 28.8 pg (27.0-31.0); Mean Corpuscular Volume 88.8 fL (78.0-98.0); Mean Platelet Volume 8.4 fL (7.4-10.4); Platelet Count 111 thou/uL (130-400); RBC Distribution Width 14.8 % (11.5-14.5); Red Blood Cell (RBC) Count 4.49 mill/uL (4.70-6.10); White Blood Cell (WBC) Count 8.4 thou/uL (4.8-10.8)
[2022-03-14 11:08] LABS: ALT (SGPT) 17 U/L (8-55); AST (SGOT) 15 U/L (5-34); Albumin 4.1 g/dL (3.4-4.8); Alkaline Phosphatase 64 U/L (40-110); Anion Gap 14 mmol/L (10-20); BUN (Urea Nitrogen) 14 mg/dL (8.4-25.7); Bilirubin, Total 0.7 mg/dL (0.2-1.2); Calc. Creatinine Clearance 0 mL/min (70-130); Calcium 9.2 mg/dL (7.8-10.44); Carbon Dioxide 25 mmol/L (23-31); Chloride 100 mmol/L (98-107); Estimated GFR 81; Globulin 3.1 g/dL (2.4-3.5); Glucose 151 mg/dL (80-115); Potassium 3.9 mmol/L (3.5-5.1); Protein, Total 7.2 g/dL (5.8-8.1); Sodium 135 mmol/L (136-145)
[2022-03-14 11:27] LABS: CKMB 0.7 ng/mL (0-6.6)
[2022-03-14 13:13] LABS: Bilirubin Negative (Negative); Blood, Urine Negative (Negative); Clarity Clear (Clear); Glucose, Urine (Dipstick) Normal (Negative); Ketone, Urine Negative (Negative); Leukocyte Negative Leu/uL (Negative); Nitrite Negative (Negative); Protein, Urine (Dipstick) Negative (Neg-Trace); Specific Gravity, Urine 1.017 (1.002-1.036); Urobilinogen Normal mg/dL (Less than 2); pH, Urine 5.5 (5.0-9.0)
[2022-03-14] MEDS ORDERED: Electrolyte Replacement Protocol 1 EACH FS SCH (13:45)
[2022-03-14] MEDS ORDERED: Lorazepam 2 MG/ML VIAL ONE (13:56)
[2022-03-14] MEDS ORDERED: Electrolyte Replacement Protocol FS PRN (14:00)
[2022-03-14 14:09] LABS: Phosphorus 2.9 mg/dL (2.3-4.7)
[2022-03-14 14:11] LABS: Magnesium 1.7 mg/dL (1.6-2.6)
[2022-03-14 14:37] LABS: Troponin I 0.017 ng/mL (< 0.028)
[2022-03-14] MEDS ORDERED: Sodium Chloride 0.9% 1,000 ML IV SCH (14:45)
[2022-03-14 15:00] LABS: Digoxin 0.44 ng/mL (0.8-2.0)
[2022-03-14] MEDS ORDERED: Magnesium Sulfate 3 GM in Sodium Chloride 0.9% 100 ML IVPB SCH (15:00)
[2022-03-14 15:03] LABS: INR-International Normal Ratio 1.1; Prothrombin Time 14.3 sec (12.0-14.7)
[2022-03-14 15:04] LABS: PTT 42.8 sec (22.9-36.1)
[2022-03-14] MEDS ORDERED: Dextrose 50% Abboject 50 ML SYRINGE SLOW IVP PRN (15:36)
[2022-03-14] MEDS ORDERED: Dextrose 5% in Water 1,000 ML IV PRN (15:36)
[2022-03-14] MEDS ORDERED: Insulin Regular 300 UNITS/3 ML VIAL SC PRN ×2 (15:36)
[2022-03-14] MEDS ORDERED: Ondansetron ODT 4 MG TAB PO PRN (15:39)
[2022-03-14] MEDS ORDERED: Ondansetron PF 4 MG/2 ML Vial IVP PRN (15:39)
[2022-03-14] MEDS ORDERED: Senokot S 8.6-50 MG TAB PO PRN (15:39)
[2022-03-14] MEDS ORDERED: Calcium Carbonate 500 MG ChewTAB PO PRN (15:39)
[2022-03-14] MEDS ORDERED: Digoxin 0.125 MG TAB PO SCH (15:45)
[2022-03-14 17:26] VITALS: BMI 38.7
[2022-03-14 18:01] LABS: Troponin I 0.023 ng/mL (< 0.028)
[2022-03-14] MEDS: Metoprolol Tartrate 100 MG TAB PO SCH (20:27)
[2022-03-14] MEDS: Gabapentin 300 MG CAP PO SCH (20:27)
[2022-03-14] MEDS: Acetaminophen 325 MG TAB PO PRN (20:27)
[2022-03-14] MEDS: Tamsulosin HCl 0.4 MG CAP PO SCH (20:27)
[2022-03-14] MEDS: Magnesium Chloride 64 MG TAB PO SCH (21:47)
[2022-03-15 06:09] LABS: #Lymphocytes 0.9 thou/uL (1.20-3.40); #Monocytes 0.6 thou/uL (0.11-0.59); #Neutrophils 3.4 thou/uL (1.40-6.50); %Eosinophils 0.6 % (0.0-10.0); %Lymphocytes 18.7 % (21.0-51.0); %Monocytes 12.7 % (0.0-10.0); Hemoglobin 12.4 g/dL (14.0-18.0); Mean Corpuscular Hemoglobin 28.8 pg (27.0-31.0); Mean Corpuscular Volume 89.9 fL (78.0-98.0); Mean Platelet Volume 8.4 fL (7.4-10.4); Platelet Count 91 thou/uL (130-400); RBC Distribution Width 14.6 % (11.5-14.5); Red Blood Cell (RBC) Count 4.31 mill/uL (4.70-6.10)
[2022-03-15] MEDS ORDERED: FLU VACC QS2022-23(6MOS UP)/PF 60 MCG/0.5 ML SYRINGE IM ONE (09:00)
[2022-03-15] MEDS ORDERED: Digoxin 0.125 MG TAB PO SCH (09:00)
[2022-03-15] MEDS: Gabapentin 300 MG CAP PO SCH ×2 (10:13→21:50)
[2022-03-15] MEDS: Metoprolol Tartrate 100 MG TAB PO SCH (10:14)
[2022-03-15] MEDS: Venlafaxine 75 MG TAB PO SCH (10:14)
[2022-03-15] MEDS: Magnesium Chloride 64 MG TAB PO SCH ×2 (10:14→21:50)
[2022-03-15] MEDS: Digoxin 0.25 MG TAB PO SCH (10:15)
[2022-03-15 10:48] LABS: Anion Gap 13 mmol/L (10-20); BUN (Urea Nitrogen) 13 mg/dL (8.4-25.7); Calc. Creatinine Clearance 158 mL/min (70-130); Calcium 8.5 mg/dL (7.8-10.44); Carbon Dioxide 24 mmol/L (23-31); Chloride 103 mmol/L (98-107); Estimated GFR 87; Glucose 170 mg/dL (80-115); Potassium 3.7 mmol/L (3.5-5.1); Sodium 136 mmol/L (136-145)
[2022-03-15] MEDS ORDERED: Metoprolol Tartrate 50 MG TAB PO SCH (12:00)
[2022-03-15] MEDS: Aspirin 81 mg Enteric Coated Tablet PO SCH (12:08)
[2022-03-15] MEDS ORDERED: Magnesium 2 GM/50 ML(in water) 2 GM in Premix Bag 1 BAG IVPB SCH (14:15)
[2022-03-15] MEDS: Tamsulosin HCl 0.4 MG CAP PO SCH (21:50)
[2022-03-15] MEDS: Metoprolol Tartrate 50 MG TAB PO SCH (21:50)
[2022-03-15] MEDS: Acetaminophen 325 MG TAB PO PRN (21:54)
[2022-03-16 05:18] LABS: Magnesium 2.5 mg/dL (1.6-2.6)
[2022-03-16] MEDS: Digoxin 0.25 MG TAB PO SCH (10:13)
[2022-03-16] MEDS: Aspirin 81 mg Enteric Coated Tablet PO SCH (10:13)
[2022-03-16] MEDS: Gabapentin 300 MG CAP PO SCH ×2 (10:14→20:27)
[2022-03-16] MEDS: Magnesium Chloride 64 MG TAB PO SCH ×2 (10:15→20:26)
[2022-03-16] MEDS: Metoprolol Tartrate 50 MG TAB PO SCH ×2 (10:16→20:27)
[2022-03-16] MEDS: Venlafaxine 75 MG TAB PO SCH (10:17)
[2022-03-16] MEDS: CEFAZOLIN 2 GM in Sodium Chloride 0.9% 100 ML IVPB SCH ×2 (14:57→21:44)
[2022-03-16] MEDS: Tamsulosin HCl 0.4 MG CAP PO SCH (20:27)
[2022-03-16] MEDS: Acetaminophen 325 MG TAB PO PRN (21:48)
[2022-03-17 05:19] LABS: #Eosinphils 0.1 thou/uL (0.0-0.7); #Lymphocytes 1.3 thou/uL (1.20-3.40); #Monocytes 0.7 thou/uL (0.11-0.59); %Basophils 0.1 % (0.0-1.0); %Eosinophils 2.2 % (0.0-10.0); %Lymphocytes 21.3 % (21.0-51.0); %Monocytes 11.8 % (0.0-10.0); %Neutrophils 64.6 % (42.0-75.0); Mean Corpuscular HGB CONC 31.2 g/dL (32.0-36.0); Mean Corpuscular Hemoglobin 28.1 pg (27.0-31.0); Mean Corpuscular Volume 90.1 fL (78.0-98.0); Mean Platelet Volume 8.7 fL (7.4-10.4); Platelet Count 119 thou/uL (130-400); RBC Distribution Width 14.5 % (11.5-14.5); Red Blood Cell (RBC) Count 3.92 mill/uL (4.70-6.10); White Blood Cell (WBC) Count 6.2 thou/uL (4.8-10.8)
[2022-03-17 05:26] LABS: Anion Gap 12 mmol/L (10-20); BUN (Urea Nitrogen) 18 mg/dL (8.4-25.7); Calc. Creatinine Clearance 157 mL/min (70-130); Calcium 8.6 mg/dL (7.8-10.44); Carbon Dioxide 25 mmol/L (23-31); Chloride 104 mmol/L (98-107); Estimated GFR 86; Glucose 142 mg/dL (80-115); Potassium 4.2 mmol/L (3.5-5.1); Sodium 137 mmol/L (136-145)
[2022-03-17] MEDS: CEFAZOLIN 2 GM in Sodium Chloride 0.9% 100 ML IVPB SCH ×3 (05:26→20:56)
[2022-03-17] MEDS: Venlafaxine 75 MG TAB PO SCH (10:25)
[2022-03-17] MEDS: Magnesium Chloride 64 MG TAB PO SCH ×2 (10:25→20:57)
[2022-03-17] MEDS: Gabapentin 300 MG CAP PO SCH ×2 (10:26→20:57)
[2022-03-17] MEDS: Digoxin 0.25 MG TAB PO SCH (10:26)
[2022-03-17] MEDS: Metoprolol Tartrate 50 MG TAB PO SCH ×2 (10:26→20:57)
[2022-03-17] MEDS: Aspirin 81 mg Enteric Coated Tablet PO SCH (10:29)
[2022-03-17] MEDS: Tamsulosin HCl 0.4 MG CAP PO SCH (20:57)
[2022-03-18 05:19] LABS: Anion Gap 12 mmol/L (10-20); BUN (Urea Nitrogen) 19 mg/dL (8.4-25.7); Calc. Creatinine Clearance 157 mL/min (70-130); Calcium 8.6 mg/dL (7.8-10.44); Carbon Dioxide 24 mmol/L (23-31); Chloride 105 mmol/L (98-107); Estimated GFR 86; Glucose 128 mg/dL (80-115); Potassium 4.2 mmol/L (3.5-5.1); Sodium 137 mmol/L (136-145)
[2022-03-18 05:25] LABS: #Eosinphils 0.2 thou/uL (0.0-0.7); #Lymphocytes 1.4 thou/uL (1.20-3.40); #Monocytes 0.8 thou/uL (0.11-0.59); #Neutrophils 4.3 thou/uL (1.40-6.50); %Basophils 0.3 % (0.0-1.0); %Eosinophils 2.4 % (0.0-10.0); %Lymphocytes 21.4 % (21.0-51.0); %Monocytes 11.3 % (0.0-10.0); %Neutrophils 64.7 % (42.0-75.0); Hemoglobin 10.9 g/dL (14.0-18.0); Mean Corpuscular HGB CONC 32.7 g/dL (32.0-36.0); Mean Corpuscular Hemoglobin 29.5 pg (27.0-31.0); Mean Corpuscular Volume 90.1 fL (78.0-98.0); Platelet Count 133 thou/uL (130-400); RBC Distribution Width 14.5 % (11.5-14.5); White Blood Cell (WBC) Count 6.7 thou/uL (4.8-10.8)
[2022-03-18] MEDS: CEFAZOLIN 2 GM in Sodium Chloride 0.9% 100 ML IVPB SCH ×3 (05:39→21:33)
[2022-03-18] MEDS: Magnesium Chloride 64 MG TAB PO SCH ×2 (10:35→21:35)
[2022-03-18] MEDS: Digoxin 0.25 MG TAB PO SCH (10:35)
[2022-03-18] MEDS: Venlafaxine 75 MG TAB PO SCH (10:35)
[2022-03-18] MEDS: Gabapentin 300 MG CAP PO SCH ×2 (10:35→21:34)
[2022-03-18] MEDS: Metoprolol Tartrate 50 MG TAB PO SCH ×2 (10:35→21:35)
[2022-03-18] MEDS: Aspirin 81 mg Enteric Coated Tablet PO SCH (10:36)
[2022-03-18] MEDS ORDERED: Furosemide 20 MG TAB PO SCH (16:15)
[2022-03-18] MEDS ORDERED: Vancomycin HCl 2.5 GM in Sodium Chloride 0.9% 500 ML IVPB SCH (16:30)
[2022-03-18] MEDS ORDERED: Vancomycin HCl 1.25 GM in Sodium Chloride 0.9% 250 ML 250 ML IVPB SCH (21:00)
[2022-03-18] MEDS: Tamsulosin HCl 0.4 MG CAP PO SCH (21:35)
[2022-03-18] MEDS: Acetaminophen 325 MG TAB PO PRN (21:42)
[2022-03-19 05:23] LABS: #Eosinphils 0.2 thou/uL (0.0-0.7); #Lymphocytes 1.4 thou/uL (1.20-3.40); #Monocytes 0.8 thou/uL (0.11-0.59); #Neutrophils 4.3 thou/uL (1.40-6.50); %Basophils 0.4 % (0.0-1.0); %Eosinophils 3.5 % (0.0-10.0); %Lymphocytes 20.3 % (21.0-51.0); %Monocytes 11.2 % (0.0-10.0); %Neutrophils 64.6 % (42.0-75.0); Hemoglobin 10.4 g/dL (14.0-18.0); Mean Corpuscular HGB CONC 31.7 g/dL (32.0-36.0); Mean Corpuscular Hemoglobin 28.2 pg (27.0-31.0); Mean Corpuscular Volume 89.1 fL (78.0-98.0); Mean Platelet Volume 7.9 fL (7.4-10.4); Platelet Count 139 thou/uL (130-400); RBC Distribution Width 14.5 % (11.5-14.5); Red Blood Cell (RBC) Count 3.68 mill/uL (4.70-6.10); White Blood Cell (WBC) Count 6.7 thou/uL (4.8-10.8)
[2022-03-19 05:38] LABS: Anion Gap 12 mmol/L (10-20); BUN (Urea Nitrogen) 19 mg/dL (8.4-25.7); Calc. Creatinine Clearance 150 mL/min (70-130); Calcium 8.6 mg/dL (7.8-10.44); Carbon Dioxide 25 mmol/L (23-31); Chloride 105 mmol/L (98-107); Estimated GFR 81; Glucose 127 mg/dL (80-115); Sodium 138 mmol/L (136-145)
[2022-03-19] MEDS: CEFAZOLIN 2 GM in Sodium Chloride 0.9% 100 ML IVPB SCH ×3 (05:48→21:10)
[2022-03-19] MEDS: VANCOMYCIN 1.75 GM/500 ML BAG 1.75 GM in Premix Bag 1 BAG IVPB SCH ×2 (07:00→18:23)
[2022-03-19] MEDS: Aspirin 81 mg Enteric Coated Tablet PO SCH (09:31)
[2022-03-19] MEDS: Venlafaxine 75 MG TAB PO SCH (09:32)
[2022-03-19] MEDS: Digoxin 0.25 MG TAB PO SCH (09:33)
[2022-03-19] MEDS: Gabapentin 300 MG CAP PO SCH ×2 (09:34→21:07)
[2022-03-19] MEDS: Metoprolol Tartrate 50 MG TAB PO SCH ×2 (09:34→21:08)
[2022-03-19] MEDS: Furosemide 20 MG TAB PO SCH (09:34)
[2022-03-19] MEDS: Magnesium Chloride 64 MG TAB PO SCH ×2 (11:56→21:07)
[2022-03-19] MEDS: Tamsulosin HCl 0.4 MG CAP PO SCH (21:09)
[2022-03-19] MEDS: Acetaminophen 325 MG TAB PO PRN (21:09)
[2022-03-20 05:05] LABS: #Eosinphils 0.1 thou/uL (0.0-0.7); #Lymphocytes 1.4 thou/uL (1.20-3.40); #Monocytes 0.8 thou/uL (0.11-0.59); #Neutrophils 5.1 thou/uL (1.40-6.50); %Basophils 0.2 % (0.0-1.0); %Lymphocytes 18.6 % (21.0-51.0); %Monocytes 10.4 % (0.0-10.0); %Neutrophils 68.8 % (42.0-75.0); Hemoglobin 11.4 g/dL (14.0-18.0); Mean Corpuscular HGB CONC 31.7 g/dL (32.0-36.0); Mean Corpuscular Hemoglobin 28.5 pg (27.0-31.0); Mean Corpuscular Volume 90.1 fL (78.0-98.0); Mean Platelet Volume 7.9 fL (7.4-10.4); Platelet Count 149 thou/uL (130-400); RBC Distribution Width 14.8 % (11.5-14.5); Red Blood Cell (RBC) Count 3.98 mill/uL (4.70-6.10); White Blood Cell (WBC) Count 7.4 thou/uL (4.8-10.8)
[2022-03-20 05:18] LABS: Vancomycin, Trough 18.8 ug/mL
[2022-03-20 05:19] LABS: Anion Gap 15 mmol/L (10-20); BUN (Urea Nitrogen) 18 mg/dL (8.4-25.7); Calc. Creatinine Clearance 156 mL/min (70-130); Calcium 8.9 mg/dL (7.8-10.44); Carbon Dioxide 21 mmol/L (23-31); Chloride 106 mmol/L (98-107); Estimated GFR 85; Glucose 138 mg/dL (80-115); Potassium 4.4 mmol/L (3.5-5.1); Sodium 138 mmol/L (136-145)
[2022-03-20] MEDS: CEFAZOLIN 2 GM in Sodium Chloride 0.9% 100 ML IVPB SCH ×3 (05:25→20:51)
[2022-03-20] MEDS: Metoprolol Tartrate 50 MG TAB PO SCH ×2 (06:32→20:48)
[2022-03-20] MEDS: VANCOMYCIN 1.75 GM/500 ML BAG 1.75 GM in Premix Bag 1 BAG IVPB SCH ×2 (07:25→18:30)
[2022-03-20] MEDS: Magnesium Chloride 64 MG TAB PO SCH ×2 (09:26→20:48)
[2022-03-20] MEDS: Venlafaxine 75 MG TAB PO SCH (09:27)
[2022-03-20] MEDS: Digoxin 0.25 MG TAB PO SCH (09:27)
[2022-03-20] MEDS: Gabapentin 300 MG CAP PO SCH ×2 (09:27→20:48)
[2022-03-20] MEDS: Furosemide 20 MG TAB PO SCH (09:28)
[2022-03-20] MEDS: Aspirin 81 mg Enteric Coated Tablet PO SCH (09:28)
[2022-03-20] MEDS ORDERED: CEFAZOLIN 1 GM VIAL ONE ×2 (13:02→15:41)
[2022-03-20] MEDS ORDERED: Gentamicin 80 MG/2 ML VIAL ONE (13:02)
[2022-03-20] MEDS ORDERED: Lidocaine 1% (PF) 30 ML VIAL ONE ×3 (13:02→15:41)
[2022-03-20] MEDS ORDERED: Midazolam HCl 2 mg/2 ml Vial ONE (14:21)
[2022-03-20] MEDS ORDERED: Fentanyl 100 MCG/2 ML VIAL ONE ×2 (14:21→15:41)
[2022-03-20] MEDS ORDERED: Acetaminophen/Codeine 30-300mg Tablet PO PRN ×2 (17:09→17:10)
[2022-03-20] MEDS: Tamsulosin HCl 0.4 MG CAP PO SCH (20:49)
[2022-03-20] MEDS: Acetaminophen 325 MG TAB PO PRN (20:49)
[2022-03-21 05:01] LABS: #Eosinphils 0.2 thou/uL (0.0-0.7); #Lymphocytes 1.3 thou/uL (1.20-3.40); #Monocytes 0.5 thou/uL (0.11-0.59); #Neutrophils 5.3 thou/uL (1.40-6.50); %Basophils 0.2 % (0.0-1.0); %Eosinophils 2.4 % (0.0-10.0); %Lymphocytes 17.7 % (21.0-51.0); %Monocytes 7.3 % (0.0-10.0); %Neutrophils 72.3 % (42.0-75.0); Mean Corpuscular HGB CONC 31.8 g/dL (32.0-36.0); Mean Corpuscular Hemoglobin 28.8 pg (27.0-31.0); Mean Corpuscular Volume 90.4 fL (78.0-98.0); Mean Platelet Volume 7.7 fL (7.4-10.4); Platelet Count 160 thou/uL (130-400); RBC Distribution Width 14.9 % (11.5-14.5); Red Blood Cell (RBC) Count 3.82 mill/uL (4.70-6.10); White Blood Cell (WBC) Count 7.4 thou/uL (4.8-10.8)
[2022-03-21 05:15] LABS: Anion Gap 9 mmol/L (10-20); BUN (Urea Nitrogen) 13 mg/dL (8.4-25.7); Calc. Creatinine Clearance 163 mL/min (70-130); Calcium 8.6 mg/dL (7.8-10.44); Carbon Dioxide 28 mmol/L (23-31); Chloride 104 mmol/L (98-107); Estimated GFR 88; Glucose 122 mg/dL (80-115); Potassium 4.3 mmol/L (3.5-5.1); Sodium 137 mmol/L (136-145)
[2022-03-21] MEDS: CEFAZOLIN 2 GM in Sodium Chloride 0.9% 100 ML IVPB SCH (06:03)
[2022-03-21] MEDS: VANCOMYCIN 1.75 GM/500 ML BAG 1.75 GM in Premix Bag 1 BAG IVPB SCH (06:42)
[2022-03-21] MEDS: Venlafaxine 75 MG TAB PO SCH (09:22)
[2022-03-21] MEDS: Furosemide 20 MG TAB PO SCH (09:22)
[2022-03-21] MEDS: Metoprolol Tartrate 50 MG TAB PO SCH ×2 (09:22→20:54)
[2022-03-21] MEDS: Digoxin 0.25 MG TAB PO SCH (09:23)
[2022-03-21] MEDS: Magnesium Chloride 64 MG TAB PO SCH ×2 (09:23→20:55)
[2022-03-21] MEDS: Gabapentin 300 MG CAP PO SCH ×2 (09:23→20:54)
[2022-03-21] MEDS: Aspirin 81 mg Enteric Coated Tablet PO SCH (09:23)
[2022-03-21] MEDS: cefTRIAXone\\ROCEPHIN 1 GM in Sodium Chloride 0.9% 100 ML IVPB SCH (13:02)
[2022-03-21] MEDS ORDERED: Naproxen 500 MG TAB PO SCH (13:30)
[2022-03-21] MEDS: Naproxen 500 MG TAB PO SCH (20:53)
[2022-03-21] MEDS: Tamsulosin HCl 0.4 MG CAP PO SCH (20:54)
[2022-03-21] MEDS: Acetaminophen 325 MG TAB PO PRN (21:02)
[2022-03-22] MEDS: Digoxin 0.25 MG TAB PO SCH (08:49)
[2022-03-22] MEDS: Naproxen 500 MG TAB PO SCH ×2 (08:50→20:09)
[2022-03-22] MEDS: Furosemide 20 MG TAB PO SCH (08:50)
[2022-03-22] MEDS: Venlafaxine 75 MG TAB PO SCH (08:50)
[2022-03-22] MEDS: Magnesium Chloride 64 MG TAB PO SCH ×2 (08:50→20:09)
[2022-03-22] MEDS: Gabapentin 300 MG CAP PO SCH ×2 (08:51→20:09)
[2022-03-22] MEDS: Metoprolol Tartrate 50 MG TAB PO SCH ×2 (08:51→20:08)
[2022-03-22] MEDS: Aspirin 81 mg Enteric Coated Tablet PO SCH (08:52)
[2022-03-22] MEDS ORDERED: Furosemide 20 MG/2 ML VIAL SLOW IVP SCH (11:00)
[2022-03-22] MEDS: cefTRIAXone\\ROCEPHIN 1 GM in Sodium Chloride 0.9% 100 ML IVPB SCH (11:35)
[2022-03-22] MEDS: Acetaminophen 325 MG TAB PO PRN (20:07)
[2022-03-22] MEDS: Tamsulosin HCl 0.4 MG CAP PO SCH (20:08)
[2022-03-23] MEDS: Magnesium Chloride 64 MG TAB PO SCH ×2 (09:55→20:12)
[2022-03-23] MEDS: Metoprolol Tartrate 50 MG TAB PO SCH ×2 (09:56→20:13)
[2022-03-23] MEDS: Gabapentin 300 MG CAP PO SCH ×2 (09:56→20:13)
[2022-03-23] MEDS: Digoxin 0.25 MG TAB PO SCH (09:56)
[2022-03-23] MEDS: Furosemide 20 MG TAB PO SCH (09:56)
[2022-03-23] MEDS: Venlafaxine 75 MG TAB PO SCH (09:57)
[2022-03-23] MEDS: Naproxen 500 MG TAB PO SCH ×2 (09:57→20:12)
[2022-03-23] MEDS: Aspirin 81 mg Enteric Coated Tablet PO SCH (09:57)
[2022-03-23 10:22] LABS: #Eosinphils 0.1 thou/uL (0.0-0.7); #Monocytes 0.5 thou/uL (0.11-0.59); #Neutrophils 5.5 thou/uL (1.40-6.50); %Basophils 0.6 % (0.0-1.0); %Eosinophils 1.9 % (0.0-10.0); %Lymphocytes 13.7 % (21.0-51.0); %Monocytes 6.7 % (0.0-10.0); %Neutrophils 77.1 % (42.0-75.0); Hemoglobin 11.1 g/dL (14.0-18.0); Mean Corpuscular HGB CONC 32.2 g/dL (32.0-36.0); Mean Corpuscular Volume 90.3 fL (78.0-98.0); Mean Platelet Volume 7.5 fL (7.4-10.4); Platelet Count 163 thou/uL (130-400); RBC Distribution Width 14.9 % (11.5-14.5); Red Blood Cell (RBC) Count 3.83 mill/uL (4.70-6.10); White Blood Cell (WBC) Count 7.2 thou/uL (4.8-10.8)
[2022-03-23] MEDS ORDERED: Furosemide 20 MG TAB PO SCH (10:30)
[2022-03-23 10:37] LABS: Anion Gap 12 mmol/L (10-20); BUN (Urea Nitrogen) 19 mg/dL (8.4-25.7); Calc. Creatinine Clearance 168 mL/min (70-130); Calcium 8.8 mg/dL (7.8-10.44); Carbon Dioxide 27 mmol/L (23-31); Chloride 103 mmol/L (98-107); Estimated GFR 92; Glucose 158 mg/dL (80-115); Potassium 4.1 mmol/L (3.5-5.1); Sodium 138 mmol/L (136-145)
[2022-03-23] MEDS ORDERED: Naproxen 500 MG TAB PO SCH ×2 (11:48→12:00)
[2022-03-23] MEDS: Acetaminophen 325 MG TAB PO PRN (20:12)
[2022-03-23] MEDS: Ciprofloxacin 500 MG TAB PO SCH (20:13)
[2022-03-23] MEDS: Tamsulosin HCl 0.4 MG CAP PO SCH (20:14)
[2022-03-24 04:56] LABS: Anion Gap 14 mmol/L (10-20); BUN (Urea Nitrogen) 20 mg/dL (8.4-25.7); Calc. Creatinine Clearance 160 mL/min (70-130); Calcium 8.8 mg/dL (7.8-10.44); Carbon Dioxide 25 mmol/L (23-31); Chloride 104 mmol/L (98-107); Estimated GFR 86; Glucose 133 mg/dL (80-115); Potassium 3.6 mmol/L (3.5-5.1); Sodium 139 mmol/L (136-145)
[2022-03-24] MEDS: Ciprofloxacin 500 MG TAB PO SCH ×2 (05:29→19:33)
[2022-03-24] MEDS ORDERED: Magnesium 2 GM/50 ML(in water) 2 GM in Premix Bag 1 BAG IVPB SCH (08:00)
[2022-03-24] MEDS: Magnesium Chloride 64 MG TAB PO SCH ×2 (08:51→20:51)
[2022-03-24] MEDS: Aspirin 81 mg Enteric Coated Tablet PO SCH (08:52)
[2022-03-24] MEDS: Metoprolol Tartrate 50 MG TAB PO SCH ×2 (08:52→20:50)
[2022-03-24] MEDS: Digoxin 0.25 MG TAB PO SCH (08:52)
[2022-03-24] MEDS: Gabapentin 300 MG CAP PO SCH ×2 (08:53→20:50)
[2022-03-24] MEDS: Furosemide 40 MG TAB PO SCH (08:53)
[2022-03-24] MEDS: Naproxen 500 MG TAB PO SCH ×2 (08:53→20:50)
[2022-03-24] MEDS: Venlafaxine 75 MG TAB PO SCH (08:53)
[2022-03-24] MEDS: Acetaminophen 325 MG TAB PO PRN (19:33)
[2022-03-24] MEDS: Tamsulosin HCl 0.4 MG CAP PO SCH (20:50)
[2022-03-25 05:56] LABS: Magnesium 2.2 mg/dL (1.6-2.6)
[2022-03-25] MEDS: Ciprofloxacin 500 MG TAB PO SCH (06:32)
[2022-03-25] MEDS: Metoprolol Tartrate 50 MG TAB PO SCH (08:33)
[2022-03-25] MEDS: Venlafaxine 75 MG TAB PO SCH (08:33)
[2022-03-25] MEDS: Furosemide 40 MG TAB PO SCH (08:33)
[2022-03-25] MEDS: Digoxin 0.25 MG TAB PO SCH (08:33)
[2022-03-25] MEDS: Naproxen 500 MG TAB PO SCH (08:33)
[2022-03-25] MEDS: Aspirin 81 mg Enteric Coated Tablet PO SCH (08:33)
[2022-03-25] MEDS: Gabapentin 300 MG CAP PO SCH (08:34)
[2022-03-25] MEDS: Magnesium Chloride 64 MG TAB PO SCH (08:34)
[2022-03-25] MEDS ORDERED: Furosemide 40 MG TAB PO SCH (10:30)
[2022-03-25 11:48] VITALS: BP 173/83; TEMP 97.7
[2022-03-26] MEDS ORDERED: Furosemide 40 MG TAB PO SCH (09:00)
== END 2022-03-25 14:22 | disposition home or self-care (01) | DRG 261 ==
LOC: ERS 10:18 → SUATTDRO 10:18 → 2SW 13:55 → OBSVTOIN 03-16 09:09
PROVIDERS: ADMIT Internal Medicine; ATTEND Internal Medicine
PROC: 0JPT0PZ Removal of Cardiac Rhythm Related Device from Trunk Subcutaneous Tissue and Fascia, Open Approach (ICD-10-PCS; principal; 2022-03-20)
PROC: 02PA0MZ Removal of Cardiac Lead from Heart, Open Approach (ICD-10-PCS; 2022-03-20)
DX: T82.7XXA Infection and inflammatory reaction due to other cardiac and vascular devices, implants and grafts, initial encounter (principal); I13.0 Hypertensive heart and chronic kidney disease with heart failure and stage 1 through stage 4 chronic kidney disease, or unspecified chronic kidney disease; I48.92 Unspecified atrial flutter; I50.32 Chronic diastolic (congestive) heart failure; I47.1 Supraventricular tachycardia; I48.19 Other persistent atrial fibrillation; T82.837A Hemorrhage due to cardiac prosthetic devices, implants and grafts, initial encounter; Z20.822 Contact with and (suspected) exposure to COVID-19; Y83.8 Other surgical procedures as the cause of abnormal reaction of the patient, or of later complication, without mention of misadventure at the time of the procedure; N18.2 Chronic kidney disease, stage 2 (mild); E83.42 Hypomagnesemia; E11.22 Type 2 diabetes mellitus with diabetic chronic kidney disease; I49.5 Sick sinus syndrome; N40.0 Benign prostatic hyperplasia without lower urinary tract symptoms; E66.9 Obesity, unspecified; F32.A Depression, unspecified; M71.522 Other bursitis, not elsewhere classified, left elbow; B96.4 Proteus (mirabilis) (morganii) as the cause of diseases classified elsewhere; Z79.84 Long term (current) use of oral hypoglycemic drugs; Z90.49 Acquired absence of other specified parts of digestive tract; Z90.09 Acquired absence of other part of head and neck; Z68.39 Body mass index [BMI] 39.0-39.9, adult; Z79.02 Long term (current) use of antithrombotics/antiplatelets; Z79.01 Long term (current) use of anticoagulants
CPT/HCPCS: 33210; 33233; 33235; 36415; 36416; 71045; 80048; 80053; 80162; 80202; 81003; 82553; 83605; 83735; 83880; 84100; 84484; 84550; 85025; 85610; 85730; 87040; 87070; 87077; 87186; 87205; 87811; 90471; 90686; 93005; 96365; 96374; 96375; 96376; 97139; 99152; 99153; C1898; G0008; G0378; J0690; J0696; J1580; J1940; J2001; J2060; J2250; J3010; J3370; J3475; J3490; J7030; J7050; U0003; U0005

== ENCOUNTER 2022-05-26 14:44 | Inpatient (IN) | payer OTHER ==
[2022-05-26 15:14] LABS: #Eosinphils 0.1 thou/uL (0.0-0.7); #Lymphocytes 1.2 thou/uL (1.20-3.40); #Monocytes 0.6 thou/uL (0.11-0.59); %Basophils 0.1 % (0.0-1.0); %Lymphocytes 13.6 % (21.0-51.0); %Monocytes 6.4 % (0.0-10.0); %Neutrophils 78.9 % (42.0-75.0); Hemoglobin 13.3 g/dL (14.0-18.0); Mean Corpuscular HGB CONC 32.4 g/dL (32.0-36.0); Mean Corpuscular Hemoglobin 29.1 pg (27.0-31.0); Mean Corpuscular Volume 89.6 fl (78.0-98.0); RBC Distribution Width 16.4 % (11.5-14.5); Red Blood Cell (RBC) Count 4.57 mill/uL (4.70-6.10); White Blood Cell (WBC) Count 8.9 10x3/uL (4.8-10.8)
[2022-05-26 15:49] LABS: ALT (SGPT) 20 U/L (8-55); AST (SGOT) 13 U/L (5-34); Albumin 4.3 g/dL (3.4-4.8); Alkaline Phosphatase 52 U/L (40-110); Anion Gap 14 mmol/L (10-20); BUN (Urea Nitrogen) 39 mg/dL (8.4-25.7); Bilirubin, Total 0.4 mg/dL (0.2-1.2); Calc. Creatinine Clearance 0 mL/min (70-130); Carbon Dioxide 24 mmol/L (23-31); Chloride 100 mmol/L (98-107); Estimated GFR 49; Globulin 3.2 g/dL (2.4-3.5); Glucose 166 mg/dL (80-115); Potassium 5.2 mmol/L (3.5-5.1); Protein, Total 7.5 g/dL (5.8-8.1); Sodium 133 mmol/L (136-145)
[2022-05-26 15:51] LABS: Mean Platelet Volume 8.7 fL (7.4-10.4); Platelet Count 107 10x3/uL (130-400)
[2022-05-26 16:09] LABS: CKMB 1.3 ng/mL (0-6.6)
[2022-05-26] MEDS ORDERED: Atropine Sulfate 1 mg/10 ml Syringe ONE (17:46)
[2022-05-26] MEDS ORDERED: Aspirin Chewable 81 MG TAB ONE (17:46)
[2022-05-26] MEDS ORDERED: HumaLOG 300 UNITS/3 ML VIAL SC PRN (18:17)
[2022-05-26] MEDS ORDERED: Dextrose 5% in Water 1,000 ML IV PRN (18:17)
[2022-05-26] MEDS ORDERED: Dextrose 50% Abboject 50 ML SYRINGE SLOW IVP PRN (18:17)
[2022-05-26] MEDS ORDERED: hydrALAZINE 20 MG/ML VIAL SLOW IVP PRN (18:19)
[2022-05-26 18:54] LABS: Troponin I 0.047 ng/mL (< 0.028)
[2022-05-26 20:00] VITALS: BMI 39.4
[2022-05-26] MEDS ORDERED: Tamsulosin HCl 0.4 MG CAP PO SCH (21:00)
[2022-05-26] MEDS: Heparin 5,000 UNITS/ML VIAL SC SCH (21:34)
[2022-05-26] MEDS: Tamsulosin HCl 0.4 MG CAP PO SCH (21:34)
[2022-05-26 22:19] LABS: Troponin I 0.049 ng/mL (< 0.028)
[2022-05-26 23:00] LABS: SARS-CoV-2 NAA Rapid Test Not Detected (NotDetected)
[2022-05-27 05:38] LABS: #Eosinphils 0.1 thou/uL (0.0-0.7); #Lymphocytes 1.3 thou/uL (1.20-3.40); #Monocytes 0.6 thou/uL (0.11-0.59); #Neutrophils 4.7 thou/uL (1.40-6.50); %Basophils 0.1 % (0.0-1.0); %Lymphocytes 19.2 % (21.0-51.0); %Monocytes 9.5 % (0.0-10.0); %Neutrophils 69.3 % (42.0-75.0); Hemoglobin 11.9 g/dL (14.0-18.0); Mean Corpuscular HGB CONC 31.7 g/dL (32.0-36.0); Mean Corpuscular Hemoglobin 28.7 pg (27.0-31.0); Mean Corpuscular Volume 90.5 fl (78.0-98.0); Mean Platelet Volume 8.6 fL (7.4-10.4); Platelet Count 95 10x3/uL (130-400); RBC Distribution Width 16.4 % (11.5-14.5); Red Blood Cell (RBC) Count 4.14 mill/uL (4.70-6.10); White Blood Cell (WBC) Count 6.8 10x3/uL (4.8-10.8)
[2022-05-27 05:50] LABS: Anion Gap 13 mmol/L (10-20); BUN (Urea Nitrogen) 36 mg/dL (8.4-25.7); Calc. Creatinine Clearance 106 mL/min (70-130); Calcium 9.3 mg/dL (7.8-10.44); Carbon Dioxide 27 mmol/L (23-31); Chloride 103 mmol/L (98-107); Estimated GFR 53; Glucose 155 mg/dL (80-115); Potassium 4.2 mmol/L (3.5-5.1); Sodium 139 mmol/L (136-145)
[2022-05-27] MEDS: Venlafaxine 75 MG TAB PO SCH (08:31)
[2022-05-27] MEDS: Aspirin 81 mg Enteric Coated Tablet PO SCH (08:31)
[2022-05-27] MEDS: Heparin 5,000 UNITS/ML VIAL SC SCH ×3 (11:52→20:25)
[2022-05-27] MEDS ORDERED: Gabapentin 300 MG CAP PO SCH (16:00)
[2022-05-27] MEDS: Ascorbic Acid 500 mg Chewable Tablet PO SCH (16:35)
[2022-05-27] MEDS: Tamsulosin HCl 0.4 MG CAP PO SCH (20:24)
[2022-05-27] MEDS: Cholecalciferol 1,000 UNITS (25 MCG) TAB PO SCH (20:24)
[2022-05-27] MEDS: Sulfameth/Trimethoprim DS 800-160mg TAB PO SCH (20:25)
[2022-05-27] MEDS: Zinc Sulfate 220 MG CAP PO SCH (20:25)
[2022-05-27] MEDS: Metoprolol Tartrate 50 MG TAB PO SCH (20:25)
[2022-05-27] MEDS: Gabapentin 300 MG CAP PO SCH (20:25)
[2022-05-28] MEDS ORDERED: Furosemide 20 MG TAB PO SCH (09:00)
[2022-05-28] MEDS: Venlafaxine 75 MG TAB PO SCH (09:23)
[2022-05-28] MEDS: Ascorbic Acid 500 mg Chewable Tablet PO SCH ×2 (09:23→17:15)
[2022-05-28] MEDS: Spironolactone 25 MG TAB PO SCH (09:24)
[2022-05-28] MEDS: Sulfameth/Trimethoprim DS 800-160mg TAB PO SCH ×2 (09:24→20:35)
[2022-05-28] MEDS: Metoprolol Tartrate 50 MG TAB PO SCH ×2 (09:24→20:35)
[2022-05-28] MEDS: metFORMIN 500 MG TAB PO SCH (09:24)
[2022-05-28] MEDS: Gabapentin 300 MG CAP PO SCH ×2 (09:25→20:35)
[2022-05-28] MEDS: Aspirin 81 mg Enteric Coated Tablet PO SCH (09:25)
[2022-05-28] MEDS: Heparin 5,000 UNITS/ML VIAL SC SCH ×3 (09:58→20:33)
[2022-05-28] MEDS ORDERED: Dronedarone HCl 400 MG TAB PO SCH (18:30)
[2022-05-28] MEDS: Zinc Sulfate 220 MG CAP PO SCH (20:34)
[2022-05-28] MEDS: Tamsulosin HCl 0.4 MG CAP PO SCH (20:34)
[2022-05-28] MEDS: Cholecalciferol 1,000 UNITS (25 MCG) TAB PO SCH (20:34)
[2022-05-28] MEDS ORDERED: Sotalol HCl 80 MG TAB PO SCH (21:00)
[2022-05-29] MEDS ORDERED: Dronedarone HCl 400 MG TAB PO SCH (08:00)
[2022-05-29] MEDS: Ascorbic Acid 500 mg Chewable Tablet PO SCH (08:13)
[2022-05-29] MEDS: metFORMIN 500 MG TAB PO SCH (08:14)
[2022-05-29] MEDS: Spironolactone 25 MG TAB PO SCH (08:14)
[2022-05-29] MEDS: Aspirin 81 mg Enteric Coated Tablet PO SCH (08:15)
[2022-05-29] MEDS: Gabapentin 300 MG CAP PO SCH (08:15)
[2022-05-29] MEDS: Venlafaxine 75 MG TAB PO SCH (08:17)
[2022-05-29] MEDS: Sulfameth/Trimethoprim DS 800-160mg TAB PO SCH (08:17)
[2022-05-29] MEDS: Metoprolol Tartrate 50 MG TAB PO SCH (08:17)
[2022-05-29] MEDS: Heparin 5,000 UNITS/ML VIAL SC SCH (08:18)
[2022-05-29 12:03] VITALS: BP 120/57; TEMP 98.4
[2022-05-29] MEDS ORDERED: Digoxin 0.5 MG/2 ML AMP SLOW IVP SCH (12:30)
[2022-05-30] MEDS ORDERED: Digoxin 0.125 MG TAB PO SCH (09:00)
== END 2022-05-29 14:47 | disposition home or self-care (01) | DRG 309 ==
LOC: ERS 14:44 → 2SW 17:29
PROVIDERS: ADMIT Internal Medicine; ATTEND Internal Medicine
PROC: 4B02XSZ Measurement of Cardiac Pacemaker, External Approach (ICD-10-PCS; principal; 2022-05-27)
DX: I48.91 Unspecified atrial fibrillation (principal); I50.32 Chronic diastolic (congestive) heart failure; N17.9 Acute kidney failure, unspecified; Z20.822 Contact with and (suspected) exposure to COVID-19; N18.2 Chronic kidney disease, stage 2 (mild); N40.0 Benign prostatic hyperplasia without lower urinary tract symptoms; E11.22 Type 2 diabetes mellitus with diabetic chronic kidney disease; I49.5 Sick sinus syndrome; G47.33 Obstructive sleep apnea (adult) (pediatric); F32.A Depression, unspecified; E66.9 Obesity, unspecified; Z68.39 Body mass index [BMI] 39.0-39.9, adult; Z79.899 Other long term (current) drug therapy; Z79.84 Long term (current) use of oral hypoglycemic drugs; Z79.82 Long term (current) use of aspirin; Z79.1 Long term (current) use of non-steroidal anti-inflammatories (NSAID); Z95.0 Presence of cardiac pacemaker; Z99.89 Dependence on other enabling machines and devices
CPT/HCPCS: 36415; 36416; 71045; 80048; 80053; 82553; 83880; 84484; 85025; 93005; 93880; 94760; 96374; J0461; J1160; J1644; U0002

== ENCOUNTER 2022-08-10 11:24 | Inpatient (IN) | payer OTHER ==
[2022-08-10] MEDS ORDERED: NOREPINEPHRINE 8 MG/250 ML-D5W 250 ML ONE (11:55)
[2022-08-10] MEDS ORDERED: Norepinephrine 4 MG/4 ML VIAL ONE (11:55)
[2022-08-10 12:14] LABS: Base Excess -20.7 mEq/L (-2.0 to +3.0); Calcium, Ionized (venous) 1.04 mmol/L (1.16-1.32); Chloride (VBG) 95 mmol/L (98-106); Hemoglobin (Hb) 13.2 g/dL (12.6-17.4); Sodium 129.9 mmol/L (133-146)
[2022-08-10 12:15] LABS: Actual Bicarbonate (HCO3v) 10 mEq/L (22-28); pH (venous) 7.01 (7.32-7.43)
[2022-08-10 12:16] LABS: Potassium (VBG) 6.07 mmol/L (3.70-5.30)
[2022-08-10] MEDS ORDERED: Cefepime 2 GM VIAL ONE (12:19)
[2022-08-10] MEDS ORDERED: VANCOMYCIN 2 GRAM/500 ML BAG 2 GM in Premix Bag 1 BAG IVPB SCH (12:30)
[2022-08-10 12:35] LABS: Hemoglobin 12.2 g/dL (14.0-18.0); Mean Corpuscular HGB CONC 31.1 g/dL (32.0-36.0); Mean Corpuscular Hemoglobin 29.2 pg (27.0-31.0); Mean Corpuscular Volume 93.9 fl (78.0-98.0); Mean Platelet Volume 9.9 fL (7.4-10.4); Platelet Count 174 10x3/uL (130-400); RBC Distribution Width 15.5 % (11.5-14.5); Red Blood Cell (RBC) Count 4.18 mill/uL (4.70-6.10); White Blood Cell (WBC) Count 45.1 10x3/uL (4.8-10.8)
[2022-08-10 12:48] LABS: INR-International Normal Ratio 2.3; PTT 47.6 sec (22.9-36.1); Prothrombin Time 26.7 sec (12.0-14.7)
[2022-08-10 12:50] LABS: ALT (SGPT) 163 U/L (8-55); AST (SGOT) 348 U/L (5-34); Albumin 3.6 g/dL (3.4-4.8); Alkaline Phosphatase 131 U/L (40-110); Anion Gap 34 mmol/L (10-20); BUN (Urea Nitrogen) 90 mg/dL (8.4-25.7); Bilirubin, Total 2.9 mg/dL (0.2-1.2); Calc. Creatinine Clearance 0 mL/min (70-130); Chloride 94 mmol/L (98-107); Estimated GFR 12; Globulin 3.5 g/dL (2.4-3.5); Glucose 61 mg/dL (80-115); Protein, Total 7.1 g/dL (5.8-8.1); Sodium 131 mmol/L (136-145)
[2022-08-10 12:59] LABS: Carbon Dioxide 9 mmol/L (23-31); Potassium 6.2 mmol/L (3.5-5.1)
[2022-08-10] MEDS ORDERED: Dextrose 50% Abboject 50 ML SYRINGE ONE (13:05)
[2022-08-10] MEDS ORDERED: Insulin Regular 300 UNITS/3 ML VIAL ONE (13:05)
[2022-08-10] MEDS ORDERED: Calcium Chloride 1 GM/10 ML Abboject SYRINGE ONE (13:05)
[2022-08-10 13:06] LABS: Reflex for Review?? YES
[2022-08-10 13:07] LABS: Anisocytosis SLIGHT = 6-15 cells (100X) (0-5/hpf); Band 30 % (5-11); Lymphocytes 1 % (21-51); MDiff Complete? YES; Metamyelocyte 5 % (0-0); Monocytes 5 % (0-10); Myelocyte 4 % (0-0); Neutrophil 55 % (42-75); Platelet Morphology Comment Appears Adequate; Polychromasia SLIGHT = 2-3 cells (100X) (0-2/hpf); Toxic Granulation SLIGHT; Vacuoles SLIGHT
[2022-08-10 13:08] LABS: CKMB 1.2 ng/mL (0-6.6)
[2022-08-10 13:25] LABS: SARS-CoV-2 NAA Rapid Test Not Detected (NotDetected)
[2022-08-10] MEDS ORDERED: Lidocaine 1% PF 5 ML VIAL ONE (13:59)
[2022-08-10] MEDS ORDERED: Acetaminophen 325 MG TAB PO PRN (14:10)
[2022-08-10] MEDS ORDERED: Vancomycin HCl 1 GM in Sodium Chloride 0.9% 250 ML 250 ML IVPB SCH (14:15)
[2022-08-10] MEDS ORDERED: NOREPINEPHRINE 8 MG/250 ML-D5W 250 ML IVPB PRN (14:17)
[2022-08-10] MEDS ORDERED: Insulin Regular 300 UNITS/3 ML VIAL SC PRN (14:17)
[2022-08-10] MEDS ORDERED: Hydrocortisone Sod Succ/PF 100 mg/2 ml Vial ONE (14:51)
[2022-08-10] MEDS ORDERED: Sodium Bicarbonate 2.5 MEQ/5 ML VIAL ONE (14:51)
[2022-08-10 14:52] LABS: Digoxin 1.34 ng/mL (0.8-2.0)
[2022-08-10] MEDS ORDERED: Sodium Bicarb 50 MEQ/50 ML VIAL ONE (14:54)
[2022-08-10 15:15] LABS: Analyzer IN Cardio ER; Base Excess (BEa) -17.2 mEq/L (-2.0 to +3.0); CO2 Tension 27.3 mmHg (35.0-45.0); Carboxyhemoglobin (COHb) 0.4 gm% (0.0-3.0); Hemoglobin (Hb) 12.7 g/dL (14.0-18.0); O2 Tension (PaO2), arterial 151.7 mmHg (> 80.0); Potassium - ABG Lab 5.23 mmol/L (3.70-5.30)
[2022-08-10 15:36] LABS: Actual Bicarbonate (HCO3a) 9.8 mEq/L (22-28); pH, Arterial 7.17 (7.35-7.45)
[2022-08-10 15:38] LABS: Puncture Site LRA
[2022-08-10 15:39] LABS: ALV-art Gradient 170.675 mmHg (0-20)
[2022-08-10] MEDS ORDERED: Meropenem 1 GM in Sodium Chloride 0.9% 100 ML IVPB SCH ×2 (16:00→22:00)
[2022-08-10] MEDS ORDERED: Sodium Bicarbonate 50 MEQ in Sodium Chloride 0.45% 1,000 ML IV SCH ×2 (16:00→23:30)
[2022-08-10 16:10] VITALS: BMI 39.4
[2022-08-10] MEDS ORDERED: Lactated Ringer's 500 ML IV SCH (16:15)
[2022-08-10] MEDS ORDERED: Lactated Ringer's 1,000 ML IV SCH (16:15)
[2022-08-10 16:17] LABS: Lactic Acid 10.6 mmol/L (0.5-2.2)
[2022-08-10] MEDS ORDERED: Vancomycin Dose by Levels Sliding Scale (Wt > 99) FS SCH (16:30)
[2022-08-10] MEDS ORDERED: SODIUM BICARBONATE IV SCH (17:00)
[2022-08-10] MEDS ORDERED: [UNRECOGNIZED DRUG - OTHER] IV SCH (17:00)
[2022-08-10] MEDS ORDERED: SODIUM CHLORIDE IV SCH (17:00)
[2022-08-10] MEDS: Famotidine/PF 20 mg/2ml Vial SLOW IVP SCH (21:15)
[2022-08-10 21:29] LABS: Lactic Acid 7.8 mmol/L (0.5-2.2)
[2022-08-10 22:27] LABS: Chloride 96 mmol/L (98-107); Potassium 5.7 mmol/L (3.5-5.1)
[2022-08-10 22:28] LABS: Sodium 133 mmol/L (136-145)
[2022-08-10 22:29] LABS: Glucose 121 mg/dL (80-115)
[2022-08-10 22:30] LABS: Anion Gap 32 mmol/L (10-20); Carbon Dioxide 11 mmol/L (23-31)
[2022-08-10 22:32] LABS: Calc. Creatinine Clearance 28 mL/min (70-130); Estimated GFR 11
[2022-08-10 22:33] LABS: BUN (Urea Nitrogen) 98 mg/dL (8.4-25.7)
[2022-08-10] MEDS ORDERED: Sodium Bicarb 50 MEQ/50 ML VIAL IVP SCH (23:30)
[2022-08-11 00:40] LABS: Bilirubin 1+ (Negative); Blood, Urine 2+ (Negative); CAUTI Indications for Culture Fever or rigors; Clarity Extra Turbid (Clear); Glucose, Urine (Dipstick) Normal (Negative); Ketone, Urine Trace mg/dL (Negative); Leukocyte Negative Leu/uL (Negative); Nitrite Negative (Negative); Protein, Urine (Dipstick) 200 mg/dL (Neg-Trace); Specific Gravity, Urine 1.023 (1.002-1.036); pH, Urine 5.5 (5.0-9.0)
[2022-08-11 00:47] LABS: Bacteria/HPF 3+ HPF (None Seen); RBC/HPF 0-3 HPF (0-3)
[2022-08-11 00:48] LABS: Calcium Oxalate Crystals 1+ HPF (None Seen)
[2022-08-11] MEDS: Meropenem 500 MG in Sodium Chloride 0.9% 100 ML IVPB SCH ×2 (00:48→12:27)
[2022-08-11 00:52] LABS: Urine Culture Reflex No No
[2022-08-11 01:07] LABS: Creatinine, Urine 175.73 mg/dL (63-166)
[2022-08-11 04:18] LABS: INR-International Normal Ratio 2.5; Prothrombin Time 27.7 sec (12.0-14.7)
[2022-08-11 04:29] LABS: ALT (SGPT) 514 U/L (8-55); AST (SGOT) 1204 U/L (5-34); Albumin 3.2 g/dL (3.4-4.8); Alkaline Phosphatase 149 U/L (40-110); Anion Gap 26 mmol/L (10-20); BUN (Urea Nitrogen) 101 mg/dL (8.4-25.7); Bilirubin, Total 2.5 mg/dL (0.2-1.2); Calc. Creatinine Clearance 28 mL/min (70-130); Calcium 8.8 mg/dL (7.8-10.44); Carbon Dioxide 17 mmol/L (23-31); Chloride 94 mmol/L (98-107); Estimated GFR 11; Globulin 3.9 g/dL (2.4-3.5); Glucose 146 mg/dL (80-115); Potassium 5.4 mmol/L (3.5-5.1); Protein, Total 7.1 g/dL (5.8-8.1); Sodium 132 mmol/L (136-145)
[2022-08-11 04:30] LABS: Lactic Acid 7.3 mmol/L (0.5-2.2)
[2022-08-11 04:53] LABS: Anisocytosis SLIGHT = 6-15 cells (100X) (0-5/hpf); Band 17 % (5-11); Hemoglobin 11.4 g/dL (14.0-18.0); Lymphocytes 6 % (21-51); MDiff Complete? YES; Mean Corpuscular HGB CONC 31.9 g/dL (32.0-36.0); Mean Corpuscular Hemoglobin 29.2 pg (27.0-31.0); Mean Corpuscular Volume 91.4 fl (78.0-98.0); Mean Platelet Volume 9.6 fL (7.4-10.4); Monocytes 2 % (0-10); Neutrophil 75 % (42-75); Nucleated RBC 1 % (0); Platelet Count 160 10x3/uL (130-400); Platelet Morphology Comment Appears Adequate; RBC Distribution Width 15.5 % (11.5-14.5); Red Blood Cell (RBC) Count 3.91 mill/uL (4.70-6.10); White Blood Cell (WBC) Count 45.1 10x3/uL (4.8-10.8)
[2022-08-11] MEDS ORDERED: cefTRIAXone\\ROCEPHIN 1 GM in Sodium Chloride 0.9% 100 ML IVPB SCH (08:00)
[2022-08-11] MEDS ORDERED: GASTROGRAFIN 30 ML BOT ONE (09:25)
[2022-08-11 10:49] LABS: Lactic Acid 3.6 mmol/L (0.5-2.2)
[2022-08-11 10:51] LABS: Anion Gap 26 mmol/L (10-20); BUN (Urea Nitrogen) 106 mg/dL (8.4-25.7); Calc. Creatinine Clearance 29 mL/min (70-130); Calcium 8.6 mg/dL (7.8-10.44); Carbon Dioxide 16 mmol/L (23-31); Chloride 94 mmol/L (98-107); Estimated GFR 11; Glucose 119 mg/dL (80-115); Potassium 4.5 mmol/L (3.5-5.1); Sodium 131 mmol/L (136-145)
[2022-08-11] MEDS: Albumin 25% 25 GM/100 ML BOT IVPB SCH ×2 (12:27→17:20)
[2022-08-11] MEDS ORDERED: Vancomycin HCl 750 MG in Sodium Chloride 0.9% 250 ML 250 ML IVPB SCH (14:00)
[2022-08-11] MEDS: Sodium Bicarbonate 50 MEQ in Sodium Chloride 0.45% 1,000 ML IV SCH (16:24)
[2022-08-11] MEDS: Aspirin 81 mg Enteric Coated Tablet PO SCH (20:43)
[2022-08-11] MEDS: Gabapentin 300 MG CAP PO SCH (20:43)
[2022-08-11] MEDS: Zinc Sulfate 220 MG CAP PO SCH (20:43)
[2022-08-11] MEDS: Famotidine/PF 20 mg/2ml Vial SLOW IVP SCH (20:43)
[2022-08-11] MEDS: Cholecalciferol 1,000 UNITS (25 MCG) TAB PO SCH (20:43)
[2022-08-11] MEDS: Ascorbic Acid 500 mg Chewable Tablet PO SCH (20:43)
[2022-08-12] MEDS: Albumin 25% 25 GM/100 ML BOT IVPB SCH ×5 (00:13→23:32)
[2022-08-12] MEDS: Meropenem 500 MG in Sodium Chloride 0.9% 100 ML IVPB SCH ×2 (00:13→12:17)
[2022-08-12] MEDS: Sodium Bicarbonate 50 MEQ in Sodium Chloride 0.45% 1,000 ML IV SCH (01:24)
[2022-08-12 03:45] LABS: Prothrombin Time 23.6 sec (12.0-14.7)
[2022-08-12 03:50] LABS: Band 21 % (5-11); Hemoglobin 10.8 g/dL (14.0-18.0); Hypochromia SLIGHT = 6-15 cells (100X) (0-5/hpf); Lymphocytes 10 % (21-51); MDiff Complete? YES; Mean Corpuscular HGB CONC 31.2 g/dL (32.0-36.0); Mean Corpuscular Hemoglobin 28.2 pg (27.0-31.0); Mean Corpuscular Volume 90.3 fl (78.0-98.0); Mean Platelet Volume 9.1 fL (7.4-10.4); Metamyelocyte 1 % (0-0); Monocytes 2 % (0-10); Neutrophil 65 % (42-75); Nucleated RBC 3 % (0); Platelet Count 133 10x3/uL (130-400); Platelet Morphology Comment Appears Adequate; Reactive Lymphocytes 1 % (0-10); Red Blood Cell (RBC) Count 3.83 mill/uL (4.70-6.10); White Blood Cell (WBC) Count 30.7 10x3/uL (4.8-10.8)
[2022-08-12 03:52] LABS: ALT (SGPT) 324 U/L (8-55); AST (SGOT) 324 U/L (5-34); Albumin 3.4 g/dL (3.4-4.8); Alkaline Phosphatase 161 U/L (40-110); Anion Gap 23 mmol/L (10-20); BUN (Urea Nitrogen) 118 mg/dL (8.4-25.7); Bilirubin, Total 1.7 mg/dL (0.2-1.2); Calc. Creatinine Clearance 28 mL/min (70-130); Calcium 8.3 mg/dL (7.8-10.44); Carbon Dioxide 19 mmol/L (23-31); Chloride 94 mmol/L (98-107); Estimated GFR 10; Globulin 3.3 g/dL (2.4-3.5); Glucose 125 mg/dL (80-115); Potassium 4.3 mmol/L (3.5-5.1); Protein, Total 6.7 g/dL (5.8-8.1); Sodium 132 mmol/L (136-145)
[2022-08-12] MEDS: Venlafaxine 75 MG TAB PO SCH (08:19)
[2022-08-12] MEDS: Gabapentin 300 MG CAP PO SCH ×2 (08:19→21:07)
[2022-08-12] MEDS: Ascorbic Acid 500 mg Chewable Tablet PO SCH ×2 (08:19→21:08)
[2022-08-12] MEDS: cefTRIAXone\\ROCEPHIN 2 GM in Sodium Chloride 0.9% 100 ML IVPB SCH (15:05)
[2022-08-12 15:56] LABS: Vancomycin, Random 16.8 ug/mL (See Comment)
[2022-08-12] MEDS: Aspirin 81 mg Enteric Coated Tablet PO SCH (21:08)
[2022-08-12] MEDS: Cholecalciferol 1,000 UNITS (25 MCG) TAB PO SCH (21:08)
[2022-08-12] MEDS: Famotidine/PF 20 mg/2ml Vial SLOW IVP SCH (21:09)
[2022-08-12] MEDS: Zinc Sulfate 220 MG CAP PO SCH (21:09)
[2022-08-13 03:49] LABS: INR-International Normal Ratio 1.7; Prothrombin Time 20.6 sec (12.0-14.7)
[2022-08-13 04:00] LABS: ALT (SGPT) 215 U/L (8-55); AST (SGOT) 140 U/L (5-34); Albumin 3.9 g/dL (3.4-4.8); Alkaline Phosphatase 158 U/L (40-110); Anion Gap 21 mmol/L (10-20); BUN (Urea Nitrogen) 119 mg/dL (8.4-25.7); Bilirubin, Total 1.3 mg/dL (0.2-1.2); Calc. Creatinine Clearance 30 mL/min (70-130); Carbon Dioxide 20 mmol/L (23-31); Chloride 92 mmol/L (98-107); Estimated GFR 12; Globulin 3.2 g/dL (2.4-3.5); Glucose 152 mg/dL (80-115); Potassium 3.7 mmol/L (3.5-5.1); Protein, Total 7.1 g/dL (5.8-8.1); Sodium 129 mmol/L (136-145)
[2022-08-13 04:08] LABS: Band 7 % (5-11); Burr Cells SLIGHT = 2-5 cells (100X) (0-1/hpf); Hemoglobin 11.3 g/dL (14.0-18.0); Lymphocytes 3 % (21-51); MDiff Complete? YES; Mean Corpuscular HGB CONC 31.6 g/dL (32.0-36.0); Mean Corpuscular Hemoglobin 28.4 pg (27.0-31.0); Mean Corpuscular Volume 89.9 fl (78.0-98.0); Mean Platelet Volume 9.2 fL (7.4-10.4); Metamyelocyte 2 % (0-0); Monocytes 6 % (0-10); Myelocyte 2 % (0-0); Neutrophil 80 % (42-75); Platelet Count 89 10x3/uL (130-400); Platelet Morphology Comment Appears Decreased; Red Blood Cell (RBC) Count 3.97 mill/uL (4.70-6.10); Tear Drops SLIGHT = 2-5 cells (100X) (0-1/hpf); White Blood Cell (WBC) Count 19.1 10x3/uL (4.8-10.8)
[2022-08-13] MEDS ORDERED: Cepastat Lozenges 1 LOZ PO PRN (05:15)
[2022-08-13] MEDS: Albumin 25% 25 GM/100 ML BOT IVPB SCH ×3 (05:20→17:44)
[2022-08-13] MEDS: Ascorbic Acid 500 mg Chewable Tablet PO SCH ×2 (08:58→20:38)
[2022-08-13] MEDS: Gabapentin 300 MG CAP PO SCH ×2 (08:58→20:39)
[2022-08-13] MEDS: Venlafaxine 75 MG TAB PO SCH (08:58)
[2022-08-13] MEDS: cefTRIAXone\\ROCEPHIN 2 GM in Sodium Chloride 0.9% 100 ML IVPB SCH (17:40)
[2022-08-13] MEDS: Cholecalciferol 1,000 UNITS (25 MCG) TAB PO SCH (20:38)
[2022-08-13] MEDS: guaiFENesin ER 600 MG TAB PO SCH (20:39)
[2022-08-13] MEDS: Zinc Sulfate 220 MG CAP PO SCH (20:39)
[2022-08-13] MEDS: Aspirin 81 mg Enteric Coated Tablet PO SCH (20:39)
[2022-08-13] MEDS: Famotidine/PF 20 mg/2ml Vial SLOW IVP SCH (20:41)
[2022-08-13] MEDS ORDERED: guaiFENesin ER 600 MG TAB PO SCH (21:00)
[2022-08-14] MEDS: Albumin 25% 25 GM/100 ML BOT IVPB SCH ×2 (00:34→06:16)
[2022-08-14 04:45] LABS: ALT (SGPT) 147 U/L (8-55); AST (SGOT) 64 U/L (5-34); Alkaline Phosphatase 187 U/L (40-110); Anion Gap 20 mmol/L (10-20); BUN (Urea Nitrogen) 104 mg/dL (8.4-25.7); Bilirubin, Total 1.4 mg/dL (0.2-1.2); Calc. Creatinine Clearance 45 mL/min (70-130); Calcium 8.8 mg/dL (7.8-10.44); Carbon Dioxide 24 mmol/L (23-31); Chloride 99 mmol/L (98-107); Estimated GFR 17; Globulin 3.2 g/dL (2.4-3.5); Glucose 134 mg/dL (80-115); Potassium 3.8 mmol/L (3.5-5.1); Protein, Total 7.2 g/dL (5.8-8.1); Sodium 139 mmol/L (136-145)
[2022-08-14 04:56] LABS: Anisocytosis SLIGHT = 6-15 cells (100X) (0-5/hpf); Band 7 % (5-11); Eosinophils 1 % (0-10); Hemoglobin 10.7 g/dL (14.0-18.0); Lymphocytes 9 % (21-51); MDiff Complete? YES; Mean Corpuscular HGB CONC 32.9 g/dL (32.0-36.0); Mean Corpuscular Hemoglobin 29.2 pg (27.0-31.0); Mean Platelet Volume 9.1 fL (7.4-10.4); Metamyelocyte 2 % (0-0); Monocytes 2 % (0-10); Myelocyte 1 % (0-0); Neutrophil 78 % (42-75); Nucleated RBC 1 % (0); Platelet Count 96 10x3/uL (130-400); Platelet Morphology Comment Appears Decreased; Polychromasia SLIGHT = 2-3 cells (100X) (0-2/hpf); Red Blood Cell (RBC) Count 3.65 mill/uL (4.70-6.10); White Blood Cell (WBC) Count 19.5 10x3/uL (4.8-10.8)
[2022-08-14] MEDS: Ascorbic Acid 500 mg Chewable Tablet PO SCH ×2 (08:30→21:51)
[2022-08-14] MEDS: Venlafaxine 75 MG TAB PO SCH (08:30)
[2022-08-14] MEDS: guaiFENesin ER 600 MG TAB PO SCH ×2 (08:30→21:51)
[2022-08-14] MEDS: Gabapentin 300 MG CAP PO SCH ×2 (08:30→21:50)
[2022-08-14] MEDS: cefTRIAXone\\ROCEPHIN 2 GM in Sodium Chloride 0.9% 100 ML IVPB SCH (16:04)
[2022-08-14] MEDS: Cholecalciferol 1,000 UNITS (25 MCG) TAB PO SCH (21:51)
[2022-08-14] MEDS: Famotidine/PF 20 mg/2ml Vial SLOW IVP SCH (21:51)
[2022-08-14] MEDS: Zinc Sulfate 220 MG CAP PO SCH (21:51)
[2022-08-14] MEDS: Aspirin 81 mg Enteric Coated Tablet PO SCH (21:51)
[2022-08-15] MEDS ORDERED: Metoprolol Tartrate 5 MG/5 ML VIAL IVP SCH ×2 (00:12→10:21)
[2022-08-15 04:15] LABS: Hemoglobin 11.4 g/dL (14.0-18.0); Mean Corpuscular HGB CONC 32.1 g/dL (32.0-36.0); Mean Corpuscular Volume 90.2 fl (78.0-98.0); Mean Platelet Volume 8.7 fL (7.4-10.4); Platelet Count 98 10x3/uL (130-400); RBC Distribution Width 16.4 % (11.5-14.5); Red Blood Cell (RBC) Count 3.92 mill/uL (4.70-6.10)
[2022-08-15 04:36] LABS: Anion Gap 17 mmol/L (10-20); BUN (Urea Nitrogen) 66 mg/dL (8.4-25.7); Bilirubin, Total 1.7 mg/dL (0.2-1.2); Calc. Creatinine Clearance 79 mL/min (70-130); Carbon Dioxide 27 mmol/L (23-31); Chloride 101 mmol/L (98-107); Estimated GFR 35; Glucose 135 mg/dL (80-115); Potassium 3.7 mmol/L (3.5-5.1); Protein, Total 7.3 g/dL (5.8-8.1); Sodium 141 mmol/L (136-145)
[2022-08-15 04:37] LABS: ALT (SGPT) 99 U/L (8-55); AST (SGOT) 39 U/L (5-34); Alkaline Phosphatase 172 U/L (40-110); Globulin 3.3 g/dL (2.4-3.5)
[2022-08-15 05:29] LABS: Band 8 % (5-11); Lymphocytes 8 % (21-51); MDiff Complete? YES; Metamyelocyte 1 % (0-0); Monocytes 4 % (0-10); Neutrophil 79 % (42-75); Platelet Morphology Comment Appears Decreased
[2022-08-15] MEDS ORDERED: Tamsulosin HCl 0.4 MG CAP PO SCH (10:45)
[2022-08-15] MEDS ORDERED: Metoprolol Tartrate 50 MG TAB PO SCH (10:45)
[2022-08-15] MEDS: Ascorbic Acid 500 mg Chewable Tablet PO SCH ×2 (10:51→22:27)
[2022-08-15] MEDS: guaiFENesin ER 600 MG TAB PO SCH ×2 (10:51→22:29)
[2022-08-15] MEDS: Venlafaxine 75 MG TAB PO SCH (10:52)
[2022-08-15] MEDS: Gabapentin 300 MG CAP PO SCH ×2 (10:52→22:28)
[2022-08-15] MEDS: Dronedarone HCl 400 MG TAB PO SCH (17:15)
[2022-08-15] MEDS: cefTRIAXone\\ROCEPHIN 2 GM in Sodium Chloride 0.9% 100 ML IVPB SCH (17:15)
[2022-08-15] MEDS: Zinc Sulfate 220 MG CAP PO SCH (22:27)
[2022-08-15] MEDS: Cholecalciferol 1,000 UNITS (25 MCG) TAB PO SCH (22:28)
[2022-08-15] MEDS: Aspirin 81 mg Enteric Coated Tablet PO SCH (22:29)
[2022-08-15] MEDS: Famotidine/PF 20 mg/2ml Vial SLOW IVP SCH (22:29)
[2022-08-15] MEDS: Metoprolol Tartrate 50 MG TAB PO SCH (22:30)
[2022-08-16] MEDS: Dronedarone HCl 400 MG TAB PO SCH ×2 (08:39→16:56)
[2022-08-16] MEDS: Venlafaxine 75 MG TAB PO SCH (08:39)
[2022-08-16] MEDS: guaiFENesin ER 600 MG TAB PO SCH ×2 (08:39→20:29)
[2022-08-16] MEDS: Metoprolol Tartrate 50 MG TAB PO SCH ×2 (08:39→20:28)
[2022-08-16] MEDS: Gabapentin 300 MG CAP PO SCH ×2 (08:39→20:31)
[2022-08-16] MEDS: Ascorbic Acid 500 mg Chewable Tablet PO SCH ×2 (08:39→20:29)
[2022-08-16 08:55] LABS: INR-International Normal Ratio 1.5; Prothrombin Time 18.2 sec (12.0-14.7)
[2022-08-16 09:05] LABS: ALT (SGPT) 80 U/L (8-55); AST (SGOT) 42 U/L (5-34); Albumin 3.7 g/dL (3.4-4.8); Alkaline Phosphatase 164 U/L (40-110); Anion Gap 14 mmol/L (10-20); BUN (Urea Nitrogen) 42 mg/dL (8.4-25.7); Bilirubin, Total 1.5 mg/dL (0.2-1.2); Calc. Creatinine Clearance 129 mL/min (70-130); Calcium 9.2 mg/dL (7.8-10.44); Carbon Dioxide 29 mmol/L (23-31); Chloride 101 mmol/L (98-107); Estimated GFR 62; Globulin 3.6 g/dL (2.4-3.5); Glucose 126 mg/dL (80-115); Potassium 4.1 mmol/L (3.5-5.1); Protein, Total 7.3 g/dL (5.8-8.1); Sodium 140 mmol/L (136-145)
[2022-08-16] MEDS ORDERED: Spironolactone 25 MG TAB PO SCH (09:30)
[2022-08-16] MEDS: cefTRIAXone\\ROCEPHIN 2 GM in Sodium Chloride 0.9% 100 ML IVPB SCH (15:34)
[2022-08-16] MEDS: Cholecalciferol 1,000 UNITS (25 MCG) TAB PO SCH (20:28)
[2022-08-16] MEDS: Zinc Sulfate 220 MG CAP PO SCH (20:28)
[2022-08-16] MEDS: Aspirin 81 mg Enteric Coated Tablet PO SCH (20:29)
[2022-08-16] MEDS: Famotidine/PF 20 mg/2ml Vial SLOW IVP SCH (20:32)
[2022-08-16] MEDS ORDERED: Tamsulosin HCl 0.4 MG CAP PO SCH (21:00)
[2022-08-17 06:55] LABS: ALT (SGPT) 62 U/L (8-55); AST (SGOT) 36 U/L (5-34); Albumin 3.5 g/dL (3.4-4.8); Alkaline Phosphatase 151 U/L (40-110); Anion Gap 14 mmol/L (10-20); BUN (Urea Nitrogen) 34 mg/dL (8.4-25.7); Bilirubin, Total 1.3 mg/dL (0.2-1.2); Calc. Creatinine Clearance 150 mL/min (70-130); Calcium 8.9 mg/dL (7.8-10.44); Carbon Dioxide 26 mmol/L (23-31); Chloride 102 mmol/L (98-107); Estimated GFR 75; Globulin 3.7 g/dL (2.4-3.5); Glucose 124 mg/dL (80-115); Potassium 4.1 mmol/L (3.5-5.1); Protein, Total 7.2 g/dL (5.8-8.1); Sodium 138 mmol/L (136-145)
[2022-08-17] MEDS ORDERED: Spironolactone 25 MG TAB PO SCH (08:00)
[2022-08-17] MEDS: Dronedarone HCl 400 MG TAB PO SCH ×2 (09:29→16:09)
[2022-08-17] MEDS: Venlafaxine 75 MG TAB PO SCH (09:31)
[2022-08-17] MEDS: guaiFENesin ER 600 MG TAB PO SCH (09:31)
[2022-08-17] MEDS: Gabapentin 300 MG CAP PO SCH (09:31)
[2022-08-17] MEDS: Metoprolol Tartrate 50 MG TAB PO SCH (09:31)
[2022-08-17] MEDS: Ascorbic Acid 500 mg Chewable Tablet PO SCH (09:31)
[2022-08-17] MEDS: cefTRIAXone\\ROCEPHIN 2 GM in Sodium Chloride 0.9% 100 ML IVPB SCH (16:09)
[2022-08-17 16:26] VITALS: BP 153/84; TEMP 98.1
[2022-08-17] MEDS ORDERED: Digoxin 0.125 MG TAB PO SCH (17:30)
[2022-08-18] MEDS ORDERED: Digoxin 0.125 MG TAB PO SCH (21:00)
== END 2022-08-17 20:01 | disposition home or self-care (01) | DRG 871 ==
LOC: ERS 11:24 → CCU 15:28 → IMCU/EMU 08-12 16:15 → NEURO 08-16 18:40
PROVIDERS: ADMIT Internal Medicine; ATTEND Internal Medicine
PROC: 3E03329 Introduction of Other Anti-infective into Peripheral Vein, Percutaneous Approach (ICD-10-PCS; principal; 2022-08-10)
PROC: 3E033XZ Introduction of Vasopressor into Peripheral Vein, Percutaneous Approach (ICD-10-PCS; 2022-08-10)
DX: A41.3 Sepsis due to Hemophilus influenzae (principal); J15.9 Unspecified bacterial pneumonia; R65.21 Severe sepsis with septic shock; K83.1 Obstruction of bile duct; J96.01 Acute respiratory failure with hypoxia; K72.00 Acute and subacute hepatic failure without coma; E87.20 Acidosis, unspecified; I50.32 Chronic diastolic (congestive) heart failure; N17.9 Acute kidney failure, unspecified; I13.0 Hypertensive heart and chronic kidney disease with heart failure and stage 1 through stage 4 chronic kidney disease, or unspecified chronic kidney disease; E87.1 Hypo-osmolality and hyponatremia; D68.9 Coagulation defect, unspecified; N39.0 Urinary tract infection, site not specified; Z20.822 Contact with and (suspected) exposure to COVID-19; I48.91 Unspecified atrial fibrillation; I49.5 Sick sinus syndrome; I11.0 Hypertensive heart disease with heart failure; E11.9 Type 2 diabetes mellitus without complications; N40.0 Benign prostatic hyperplasia without lower urinary tract symptoms; F41.9 Anxiety disorder, unspecified; E87.5 Hyperkalemia; E11.22 Type 2 diabetes mellitus with diabetic chronic kidney disease; N18.30 Chronic kidney disease, stage 3 unspecified; R74.01 Elevation of levels of liver transaminase levels; D69.6 Thrombocytopenia, unspecified; Z95.0 Presence of cardiac pacemaker; Z79.899 Other long term (current) drug therapy; Z79.84 Long term (current) use of oral hypoglycemic drugs; Z79.82 Long term (current) use of aspirin; Z79.1 Long term (current) use of non-steroidal anti-inflammatories (NSAID); Z98.890 Other specified postprocedural states; Z90.49 Acquired absence of other specified parts of digestive tract; Z90.89 Acquired absence of other organs
CPT/HCPCS: 36415; 36416; 36556; 36600; 71045; 71250; 74177; 76700; 80053; 80162; 80202; 81001; 82140; 82553; 82570; 82805; 83605; 84145; 84300; 84484; 85025; 85060; 85610; 85730; 87040; 87076; 87086; 87149; 87811; 93005; 93010; 93306; 94660; 96365; 96366; 96367; 96375; 99292; A4217; J0692; J0696; J1720; J1815; J2185; J3370; J3490; J7050; J7611; J7999; P9047; Q9963; S0028

== ENCOUNTER 2022-11-18 12:45 | Outpatient (CLI) | payer OTHER | END 2022-11-18 12:46 | disposition home or self-care (01) | LOC: RAD 12:45 | PROVIDERS: ATTEND Internal Medicine Cardiovascular Disease | DX: J90 Pleural effusion, not elsewhere classified (principal) | CPT/HCPCS: 71046 ==